=== PATIENT | male | born 1970 | race Caucasian/White ===

== ENCOUNTER 2017-05-20 15:30 | Outpatient (RCR) | payer BC, OTHER, SELFPAY ==
--- NOTE | 2017-04-29 12:11 | OTREVAL_ITS ---
Fabiano Rea, It has been my pleasure to treat LIAT MESSINA over the last 3 visits for right SM FDP laceration zone I. Please see the progress note below for an update on the occupational therapy plan of care! Subjective: pt returns to therapy following c9 approval- pt states he is doing well- states his fingers are sensitive and MF is demo difficlty with ROM Objective/Function: Right MF MCP 0/70. Right MF PIP -35/60. Right RF MCP 0/ 75. Right RF PIP 0/80. right LF MCP 0/70. right LF PIP -30/70. 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 left shale planer operator helper strength 145# Plan Frequency: 1x/Week Duration: 2 Months Plan: cont tx to gain ROM. decrase sensitivity. gain functional strength Anticipated Interventions Anticipated Interventions: Modified Carrera Protocol, Edema Control, Scar Care, Triggerpoint Release, Desensitization, Sensory Retraining, Wound Care, Modalities, Orthoses, Fine Motor Coord/Mamadou Please do not hesitate to contact me at [phone] by phone or Fax: if you have questions or concerns regarding this new plan of care! Sincerely, Dory Singer, OTR/L, CHT
--- NOTE | 2017-04-29 12:14 | HP.OTEVAL_ITS ---
Patient's Visit Information LIAT MESSINA is a 47 year old M, referred to Occupational Therapy by Fabiano Rea,, with a diagnosis of right SM FDP laceration zone I. Date of Evaluation: 03/05/17 Occupational Therapist: Dory Singer, OTR/L, CHT - Subjective Subjective: pt states suffered a zone I right small finger FDP laceration. 02-16 laceration sx at 02-27-17 pt is now s/p 6 days-. right hand crush injury loss of index finger but that was done at work and not related to the LF laceration. 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 right RF MCP 30 pip 40. right lf MCP not tested with active movement - Hand/Wrist Evaluation Total Score of Pain & Functional Sections: 67 - Goals Goal:100% adherence to protocol: Yes Goal:Daily scar massage when approriate: Yes Goal:ROM equal to unaffected hand: Yes Goal:Property Field Adjuster/Pinch strength at least 75% of unaffected hand: Yes Goal:No pain with affected hand use: Yes Goal:PIP Circumferences equal to unaffected hand: Yes Goal:Full use of affected hand in daily activities including: Yes Goal:Decrease scar hypersensitivity: Yes - Rehabilitation General Assessment: s/p FDP zone 1 repair. furhter complications from right hand crush inj. Rehabilitation Potential: Good - Anticipated Interventions Anticipated Interventions: Modified Carrera Protocol, Edema Control, Scar Care, Triggerpoint Release, Desensitization, Sensory Retraining, Wound Care, Modalities, Orthoses, Fine Motor Coord/Mamadou - Visit Plan Frequency: 1x/Week Duration: 2 Months General Plan: pt currently 6 days S/P following a right LF zone 1 FDP repair. will follow protocol for repair TEXT: Thank you for the opportunity to evaluate your patient. For Medicare and Medicare HMO plans, please review the plan of care and approve it. It will need to be FAXED BACK to us at [phone] for Medicare purposes. Please let me know if there are questions or concerns regarding this plan of care. Physician Signature: Date:
--- NOTE | 2017-05-20 16:09 | HP.OTREVAL ---
Fabiano Rea, It has been my pleasure to treat LIAT MESSINA over the last 10 visits for right SM FDP laceration zone I, and right IF amp at MPJ region. Please see the progress note below for an update on the occupational therapy plan of care! 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 Left intermodal owner operator truck driver 145#. right. MF MCP 0/75. MF PIP -35/75. MF DIP 0/25 Plan Frequency: pt C9 date end 05-23-17 Duration: no further apts scheduled Plan: pt would benefit from further strengthening Anticipated Interventions Anticipated Interventions: Modified Carrera Protocol, Edema Control, Scar Care, Triggerpoint Release, Desensitization, Sensory Retraining, Wound Care, Modalities, Orthoses, Fine Motor Coord/Mamadou Please do not hesitate to contact me at [phone] by phone or if you have questions or concerns regarding this new plan of care! Sincerely, Dory Singer, OTR/L, CHT
--- NOTE | 2017-07-21 13:13 | HP.OTDCSUM_ITS ---
HP - OT D/C Summary It has been my pleasure to treat LIAT MESSINA under orders from Fabiano Rea, for the diagnosis of right SM FDP laceration zone I for a total of 10 visit(s). Please see the following information for a summary of their discharge status. 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 Left military science teacher 145#. right. MF MCP 0/75. MF PIP -35/75. MF DIP 0/25 - Goals Patient Goals: Regain Mobility, Regain Strength, Decrease Swelling/Stiffness, Improve Fine Motor Skills, Use Hand/Wrist/Arm Normally Again, Be More Independent in ADLS Goal:100% adherence to protocol: Yes Goal:Daily scar massage when approriate: Yes Goal:ROM equal to unaffected hand: Yes Goal:Medical Device Sales Representative/Pinch strength at least 75% of unaffected hand: Yes Goal:No pain with affected hand use: Yes Goal:PIP Circumferences equal to unaffected hand: Yes Goal:Full use of affected hand in daily activities including: Yes Goal:Decrease scar hypersensitivity: Yes - Plan Plan: pt would benefit from further strengthening- but leaving for out of town work- pt d/c at this time. rec/d HEP to cont. to increase pts functional strength - D/C Information If there are questions or concerns regarding this patient's occupational therapy , please fell free to call me at [phone]. Thank you for the referral of this patient. Sincerely, Dory Singer, OTR/L, CHT
== END 2017-05-20 19:00 | disposition home or self-care (01) ==
LOC: OT 15:30
DX: S61.216A Laceration without foreign body of right little finger without damage to nail, initial encounter (principal)
CPT/HCPCS: 97018; 97035; 97110; 97140; 97166; 97530

== ENCOUNTER 2019-04-04 08:59 | Day surgery (SDC) | payer BC, SELFPAY ==
--- NOTE | 2019-03-07 05:14 | HP_ITS ---
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 Is patient in pain?: No Allergies No Known Allergies Allergy (Verified 03/07/19 15:41) Medications No Known/Unobtainable [No Known Home Medications] 01/09/17 [History Confirmed 03/07/19] [facility] Medical History (Updated 03/07/19 @ 17:11 by Yosef Finley MD) Inguinal hernia of left side without obstruction or gangrene (Acute) Surgical History (Updated 03/07/19 @ 15:39 by Isabelle Humphries) history right hand surgery (Acute) Family History (Updated 03/07/19 @ 15:40 by Isabelle Humphries) Grandfather Colon cancer Mother Cancer skin cancer Diabetes Social History (Updated 03/07/19 @ 17:14 by Yosef Finley MD) Smoking Status: Never smoker alcohol intake: never substance use type: does not use HPI HPI HPI: LIAT MESSINA, is a 49 M who presents to the office today for HPI HPI Surgical H&P: Yes HPI: LIAT MESSINA, is a 49 M who presents to the office today for surgical consultation regarding a suspected left inguinal hernia. The patient is referred by his primary care physician Dr. Charlie Hays and a written copy of my surgical consult and recommendations will be returned to him. For the past 2 to 3 weeks the patient has noted a bulging in the left groin area. He does have significant amount of lifting and straining at work. 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 The work environment is vigorous and rather dirty. He does not note an acute episode of discomfort. He has not had any abdominal surgery though he has previously had kidney stones treated via a uroscopic approach. He states that he otherwise enjoys good health. ROS General General: No weight change, appetite, fatigue, colon cancer, breast cancer or weakness HEENT HEENT: No difficulty swallowing, eye injury, eye surgery, swollen glands or hoarseness Endo Endocrine: No thyroid disease, diabetes mellitus, thyroid cancer, Hair loss, heat intolerance or cold intolerance Skin Skin: No rash or changing moles Breast Breast: No left breast lump, right breast lump, nipple discharge, breast pain, abnormal mammogram, abnormal US or breast enlargement Musc Musculoskeletal: No back problems, arthritis, rheumatoid arthritis, gout or joint pain Cardio Cardiovascular: No murmur, pacemaker, heart disease, atrial fibrillation, high blood pressure, heart attack, heart stent, palpitations, shortness of breat with exertion or chest pain Psych Psychiatric: No depression, anxiety or hearing voices Resp Respiratory: No shortness of breath, No sleep apnea, No cough, No COPD, No asthma, No emphysema, No wheezing Gastro Gastrointestinal: No abdominal pain, No nausea or vomiting, No diarrhea, No constipation, No blood in stool, No acid reflux, No hemorrhoids, No ulcers, No gallbladder problem, No black,tarry stools Aiden Hematologic: No blood thinners, No blood disorders, No bleeding, No anemia, No blood clots Neuro Neurologic: No system reviewed and no additional complaints, except as docu, No as per HPI, No abnormal walking, No abnormal hearing, No abnormal movements, No abnormal speech, No behavioral changes, No burning sensations, No confusion, No seizure-like activity, No unsteadiness, No dizziness, No localized weakness, No frequent falls, No headache(s), No lack of coordination, No loss of vision, No memory loss, No numbness, No other visual disturbances, No radiating pain, No restless legs, No sensory deficit, No fainting, No tingling, No tremor(s), No weakness, No other Exam Const General: cooperative, comfortable Nutritional Appearance: obese Orientation: alert, awake HENMN Head: normal to inspection Chest Breast Palpation: No nipple discharge Resp Effort & Inspection: normal respiratory effort Auscultation: clear to auscultation bilaterally Cardio Rate: regular rate Rhythm: regular rhythm Heart Sounds: no murmurs GI Palpation: soft Auscultation: normal bowel sounds Other: Small nonreducible umbilical hernia Other: Testicles are descended, somewhat difficult to feel secondary to the mild of fibrofatty tissue. Right groin is solid and intact. Obvious slightly tender but reducible left inguinal hernia noted. The patient is wearing a hernia truss Skin General: no rashes or lesions noted Neuro Cognition: normal cognition Extrem General: no calf tenderness bilaterally Psych Affect: normal affect Assessment & Plan Problems 1. Inguinal hernia of left side without obstruction or gangrene K40.90 Plan 49-year-old gentleman. He has a very vigorous works style. The work environment is somewhat dirty. He has a small umbilical hernia and a symptomatic left inguinal hernia. I have proposed for him a laparoscopic left inguinal herniorrhaphy with mesh and either a suture or mesh umbilical herniorrhaphy. In detail we discussed the technique, benefit, risks, alternatives. No guarantees of success have been offered. He has had an opportunity to ask and have questions answered. He would like to schedule in March. We will proceed at his discretion. He is aware that because of the vigorous nature of his work that we will need to have a postoperative recovery period. He has had an opportunity to ask and have questions answered. I very much appreciate the kind opportunity of assisting with the surgical care. We will schedule and proceed at his discretion. CC: Dr. Charlie Finley M.D., F.A.C.S. Coding Level of Care Code 85873 Diagnoses Inguinal hernia of left side without obstruction or gangrene K40.90 03/07/19 1714 <Electronically signed by Yosef valles MD> Date _ Yosef Finley MD I have re-examined the patient. There are no clinical changes since date of exam.
[2019-03-07 15:41] VITALS: BMI 32.5
[2019-04-04] VITALS (10 sets, daily range): BP systolic 105–129; BP diastolic 63–92; PULSE 50–63; RESP 15–16; TEMP 36.1–36.6; O2SAT 92–97; BMI 33.4
--- NOTE | 2019-04-04 | HERN_PTH ---
PATIENT: LIAT MESSINA LOC: [facility] [place] U#:[id number] AGE/SX: 49/M ROOM: RE04/04/[address]: Dr. Yosef Finley MD : 1970 BED: DIS: 04/04/2019 SPEC #: [id number] RECD: 04/04/19 14:24 STATUS: LUIS A BINA #: [id number] IFRAH: 04/04/19 00:[address]: Yosef Finley DEPT: SURGICAL PATHOLOGY RECD BY: Mynor Chin ENTERED: 04/04/19 14:24 SP TYPE: Hernia OTHR DR: Dr. Charlie Hays MD Tissues: HERNIA Procedures: Surgery Specimen Level II HEADER OPERATION: Laparoscopic inguinal hernia repair, umbilical repair with mesh PRE-OP DIAGNOSIS: Left inguinal hernia TISSUE SUBMITTED: Hernia sac MICROSCOPIC DIAGNOSIS Soft tissue of left inguinal region, excision: Fragments of fibrofatty tissue consistent with hernia sac. AM:morgan 04/05/19 MICROSCOPIC DESCRIPTION Slides are reviewed. GROSS DESCRIPTION Received in fixative is one container labeled with the patient's name and designated hernia sac. The specimen consists of three irregular fragments of pink-yellow fibrofatty tissue that in aggregate measure 4 x 2.8 x 1 cm. Serial sections do not reveal mass lesions or areas of hemorrhage. Filenet Architect sections are submitted in one cassette. / AM:morgan 04/04/19 TC:5 CPT: 59533
--- NOTE | 2019-04-04 09:16 | EKG12_ITS ---
Test Reason : PRE-OP Blood Pressure : / mmHG Vent. Rate : 051 BPM Atrial Rate : 051 BPM P-R Int : 172 ms QRS Dur : 094 ms QT Int : 434 ms P-R-T Axes : 041 025 013 degrees QTc Int : 400 ms Sinus bradycardia Otherwise normal ECG No previous ECGs available Confirmed by MIRIAN TREVINO, FER ([id number]), editor index EDUIN GRAHAM ([id number]) on 04/05/2019 10:42:39 AM Referred By: Yosef Finley Confirmed By:FER VELA MD
[2019-04-04] MEDS: Lactated Ringers 1,000 ML 100 ML IV (09:39)
[2019-04-04] MEDS: Cefazolin 2 GM in 0.9% Normal Saline 100 ML IV (11:11)
--- NOTE | 2019-04-04 11:23 | PCM.DC.GS ---
Discharge Diet: Light diet - advance as tolerated - if you have questions about your diet instructions, please talk to you doctor. Discharge Activity: May Not Drive - for 5-7days or while taking narcotic pain medicine. May shower in (days): 1 Lifting Restrictions: 10 pounds Call your doctor if your incision/area has: Continuous Slow Oozing, Sudden Increased Bleeding, Increased Pain/ Swelling, Increased Redness, Foul Smelling Discharge Call your doctor if you observe: Fever of 101 or Higher Suture Line Care: Avoid Pulling/Pushing, Avoid Pinching/Bending Additional Dressing/Incision Instructions:: Change or remove dressing in 4 days. Leave steri-strips in place for 1 week. Allergies/Adverse Reactions: Allergies No Known Allergies Allergy (Verified 04/04/19 09:19) Medications to take at Discharge Hydrocodone Bitart/Apap 5-325 [[place] 5MG-325MG] 1 tablet PO Q4H PRN PRN 2 Days #8 tablet 04/04/19 The following prescriptions were given: Hydrocodone Bitart/Apap 5-325 [[place] 5MG-325MG] 1 tablet PO Q4H PRN PRN 2 Days #8 tablet PRN Reason: Pain Transmission Status: Sent to [facility] Primary Care Physician: Charlie Hays MD [Primary Care Provider] - Test Results: Test results from this visit will be discussed in further detail at your follow-up appointment, if applicable. Please Follow Up With: Yosef Finley MD - [phone] When: Call to make an appointment to be seen in about 10 days.
[2019-04-04] MEDS: Bupivacaine Mpf 0.5% 30 ML VIAL (12:43)
--- NOTE | 2019-04-04 12:47 | OP.PCM_ITS ---
Problem List (1) Inguinal hernia of left side without obstruction or gangrene Status: Acute (2) Umbilical hernia without obstruction and without gangrene Status: Acute Report of Operation Date of Procedure: 04/04/19 Pre-Operative Diagnosis: Large indirect left inguinal hernia. Umbilical hernia Post-Operative Diagnosis: Same Surgery/Procedure Performed:: Laparoscopic left inguinal herniorrhaphy with large 3D max Bard mesh. Umbilical herniorrhaphy with 6.[address] hernia patch. 3D max: Lot number [id number]. Reference #[id number]. Expiry date 12/19/2023. Vent[address]ex ST patch. Lot number [id number]. Reference #[id number]. Expiry date 10/17/2020 Description of Surgical Findings:: Timeout informed consent was obtained. 49-year-old gent was taken the operating placement table underwent general endotracheal intubation anesthesia. Ancef 2 g given intravenously. The abdomen left groin sterilely prepped draped. 0.5% Marcaine was used as local anesthetic. Skin sites were pre-anesthetized. A total of 30 cc was used. A supraumbilical curvilinear incision was created sharp dissection carried down through subcu tissue the umbilical hernia umbilical hernia sac identified. This was circumferentially dissected free. Electrocautery was used to amputated. Specimen was sent for analysis. Holding sutures of 0 Vicryl placed. Varies needle inserted single drop test performed the abdomen insufflated CO2 to pressure of 10 minutes mercury pressure. Mary trocar inserted. The abdomen is inspected no evidence of any trocar injuries. A very small indirect defect was noted on the right. This was very small and discussion was not had with the patient so I noted it and then proceeded. There was quite a large left inguinal hernia. 5-minute trochars in place in the right and left lower quadrants. The peritoneum superior lateral to the internal ring was incised carried medially the hernia sac which was quite sizable was carefull y meticulously dissected free. Were needed hemostasis was attained with hemo- lock clips. The peritoneum was completely dissected free so as the complete visualization of the direct indirect and femoral area. A Bard 3 DMax large mesh was placed was to cover the defect area it was secured in place laterally superiorly and medially with secure strap. Excellent coverage of the defect area was achieved. Peritoneum was approximated to itself using secure strap and hemo-lock clips. Complete obliteration to the mesh was achieved. The abdomen was allowed to deflate the CO2. A 6.4 cm ventral X mesh was placed at the umbilicus and secured in place with 0 Nurolon. Fascia was then closed transversely with the same. Inspection was performed and 2 additional secure strap clips were used to assure that the mesh was completely flat against the anterior peritoneum. The greater omentum was secured so that it would be overlying the small bowel beneath. The abdomen was allowed to deflate of the CO2. Skin edges approximated opted for Monocryl subdermal stitches. Steri-Strips and Telfa and OpSite dressings were applied. Sponge and instrument and needle counts reported surgical correct. Blood loss minimal. Specimen included the umbilical hernia sac contents. Drains none. Blood loss minimal. The patient was taken to recovery in satisfactory edition without apparent complication Yosef Finley M.D., F.A.C.S. Type of Anesthesia:: General Anesthesiologist: Eliezer Garcia
== END 2019-04-04 15:52 | disposition home or self-care (01) ==
LOC: SDC 09:00 → AC 09:03
PROVIDERS: Referring Provider Surgery; Visit Provider Surgery
PROC: (CPT 49650; principal; 2019-04-04 10:55)
DX: K40.90 Unilateral inguinal hernia, without obstruction or gangrene, not specified as recurrent (principal); K42.9 Umbilical hernia without obstruction or gangrene; R00.1 Bradycardia, unspecified
CPT/HCPCS: 49650; 49652; 88302; 93005; C1781; J7120; J2405

== ENCOUNTER → 2020-06-05 13:57 | Outpatient (CLI) | payer BC, SELFPAY ==
[2019-04-04 09:25] VITALS: BMI 33.4
[2020-06-05 14:53] LABS: Hematocrit 44.7 % (40-54); Hemoglobin 14.5 g/dL (13.0-16.5); Mean Corp Hgb Conc 32.4 g/dL (32-36); Mean Corpuscular Hgb 30.3 pg (27.0-32.0); Mean Corpuscular Volume 93.3 fL (80-94); Mean Platelet Vol. 8.9 fl (6.2-12.0); Platelet Count 250 K/mm3 (150-450); RBC Distribution Width CV 12.3 % (11.6-14.6); RBC Distribution Width SD 42.3 fl (35.1-43.9); Red Blood Count 4.79 M/mm3 (4.6-6.2); White Blood Count 6.3 K/mm3 (4.4-11.0)
[2020-06-05 15:51] LABS: Anion Gap 6 (5-15); BUN 17 mg/dL (7-18); BUN/Creat Ratio 9.7 RATIO (10-20); Calcium,Total 8.4 mg/dL (8.5-10.1); Chloride 108 mmol/L (98-107); Creatinine, Serum 1.75 mg/dL (0.70-1.30); EST Glomerular Filtration Rate 44 mL/min (>60); Est Glom Filt Rate - Afr Amer 54 mL/min (>60); Glucose 80 mg/dL (74-106); Potassium 4.1 mmol/L (3.5-5.1); Sodium Level 139 mmol/L (136-145)
== END ==
PROVIDERS: PCP Family Medicine; Referring Provider Urology; Visit Provider Urology
DX: Z03.818 Encounter for observation for suspected exposure to other biological agents ruled out (principal)
CPT/HCPCS: 36415; 80048; 85027; 87635; C9803; U0002

== ENCOUNTER → 2020-06-14 15:04 | Outpatient (CLI) | payer BC, SELFPAY ==
[2019-04-04 09:25] VITALS: BMI 33.4
--- NOTE | 2020-06-14 15:13 | RAD_ITS ---
INDICATION: CALCULUS OF URETER EXAMINATION/TECHNIQUE: X-RAY - XR Abdomen 1 View COMPARISON: 02/10/2017 FINDINGS: BOWEL GAS PATTERN: Non-obstructive. No bowel or stomach distention. FREE AIR: Not assessed on a single supine view. ORGANOMEGALY: Not seen. CALCIFICATIONS: Punctate left lower pole renal calculus. No ureteral calculus is seen. LOWER CHEST: No acute pathology. BONES AND SOFT TISSUES: No acute pathology. OTHER: Left-sided nephroureteral stent present. RAD/Abdomen Single View IMPRESSION: No ureteral calculus is seen. Punctate left lower pole renal calculus. Electronically Signed: Adalberto Macias MD at 17:33 EDT Tel , Service support ,
== END ==
PROVIDERS: PCP Family Medicine; Referring Provider Urology; Visit Provider Urology
DX: N20.1 Calculus of ureter (principal)
CPT/HCPCS: 74018

== ENCOUNTER → 2021-02-21 11:32 | Outpatient (CLI) | payer BC, SELFPAY ==
[2021-02-21 15:45] LABS: Hemoglobin A1c 5.2 % (3.8-5.6)
== END ==
PROVIDERS: PCP Family Medicine; Referring Provider Physician Assistant; Visit Provider Physician Assistant
DX: L83 Acanthosis nigricans (principal); L82.1 Other seborrheic keratosis; L81.4 Other melanin hyperpigmentation; D22.5 Melanocytic nevi of trunk; L57.8 Other skin changes due to chronic exposure to nonionizing radiation; L57.0 Actinic keratosis; L90.5 Scar conditions and fibrosis of skin; L70.0 Acne vulgaris; L82.0 Inflamed seborrheic keratosis; L02.222 Furuncle of back [any part, except buttock and flank]; L91.8 Other hypertrophic disorders of the skin; I78.8 Other diseases of capillaries; Z71.89 Other specified counseling
CPT/HCPCS: 36415; 83036

== ENCOUNTER → 2021-07-29 | Outpatient (CLI) | payer BC, SELFPAY ==
[2021-07-29 17:35] LABS: PSA,Total - Annual Screen 1.07 ng/mL (0.00-4.00)
== END | disposition home or self-care (01) ==
LOC: LABSPEC 16:04 → LAB 07-30 06:24
PROVIDERS: PCP Family Medicine; Visit Provider Urology
DX: Z12.5 Encounter for screening for malignant neoplasm of prostate (principal)
CPT/HCPCS: 36415; 84153; G0103

== ENCOUNTER → 2023-06-16 | Outpatient (CLI) | payer OTHER, SELFPAY ==
[2023-06-16 17:04] LABS: ALB/GLOB Ratio 1.2 RATIO (0.9-2.4); AST(SGOT) 18 U/L (15-37); Alanine Aminotransfer ALT/SGPT 35 U/L (16-61); Alkaline Phosphatase 65 U/L (45-117); Anion Gap 8 (5-15); BUN 16 mg/dL (7-18); BUN/Creat Ratio 14.5 RATIO (10-20); Calcium,Total 9.2 mg/dL (8.5-10.1); Chloride 108 mmol/L (98-107); Cholesterol 217 mg/dL (200); EST Glomerular Filtration Rate 75 mL/min (>60); Est Glom Filt Rate - Afr Amer 90 mL/min (>60); Globulin 3.2 g/dL (2.2-4.2); Glucose 83 mg/dL (74-106); High Density Lipoprotein 28 mg/dL; Potassium 4.5 mmol/L (3.5-5.1); Protein, Total 7.2 g/dL (6.4-8.2); Sodium Level 141 mmol/L (136-145); Triglycerides 361 mg/dL; Very Low Density Lipoprotein 72 mg/dL (5-40)
== END | disposition home or self-care (01) ==
LOC: BIMLAB 15:53
PROVIDERS: PCP Family Medicine; Visit Provider Family Medicine
DX: E78.5 Hyperlipidemia, unspecified (principal)
CPT/HCPCS: 36415; 80053; 80061

== ENCOUNTER → 2024-01-12 | Outpatient (CLI) | payer OTHER, SELFPAY ==
--- NOTE | 2024-01-12 16:37 | RAD_ITS ---
INDICATION: CALCULUS OF KIDNEY EXAMINATION/TECHNIQUE: X-RAY - 2 XR Abdomen 1 View COMPARISON: Prior study dated: 06/14/2020 FINDINGS: BOWEL GAS PATTERN: Non-obstructive. No bowel or stomach distention. FREE AIR: Not assessed on a single supine view. ORGANOMEGALY: Not seen. CALCIFICATIONS: No abnormal calcifications observed. LOWER CHEST: No acute pathology. BONES AND SOFT TISSUES: No acute pathology. RAD/Abdomen Single View IMPRESSION: Non-obstructive bowel gas pattern. Electronically Signed: Fuentes Raymundo MD at 13:38 EDT ,
[2024-01-12 17:34] LABS: PSA,Total - Annual Screen 1.15 ng/mL (0.00-4.00)
== END | disposition home or self-care (01) ==
LOC: LAB 15:58
PROVIDERS: PCP Family Medicine; Referring Provider Urology; Visit Provider Urology
DX: Z12.5 Encounter for screening for malignant neoplasm of prostate (principal); N20.0 Calculus of kidney
CPT/HCPCS: 36415; 74018; 84153; G0103

== ENCOUNTER → 2024-07-14 | Outpatient (CLI) | payer OTHER, SELFPAY ==
--- NOTE | 2024-07-14 15:26 | RAD_ITS ---
PROCEDURE: SHOULDER MIN 2 VIEWS 07/14/2024 REASON FOR EXAM: SHOULDER PAIN TECHNIQUE: Four views of the left shoulder COMPARISON: None FINDINGS: See impression RAD/Shoulder min 2 Views IMPRESSION: Negative for acute fracture or malalignment. No significant arthropathy. [facility]
== END | disposition home or self-care (01) ==
PROVIDERS: PCP Family Medicine; Referring Provider Family Medicine; Visit Provider Family Medicine
DX: M75.100 Unspecified rotator cuff tear or rupture of unspecified shoulder, not specified as traumatic (principal)
CPT/HCPCS: 73030

== ENCOUNTER → 2024-10-13 | Outpatient (CLI) | payer OTHER, SELFPAY ==
--- NOTE | 2024-10-13 08:50 | RAD_ITS ---
EXAM: XR Abdomen, 1 View CLINICAL INDICATION: CALCULUS OF KIDNEY TECHNIQUE: Frontal supine view of the abdomen/pelvis. COMPARISON: No relevant prior studies available. FINDINGS: GASTROINTESTINAL TRACT: Fecal retention in the colon consistent with constipation. No dilation. ORGANS: Right renal pelvic calculi, largest measuring up to 5 mm. BONES/JOINTS: Unremarkable. No acute fracture. RAD/Abdomen Single View IMPRESSION: 1. Right renal pelvic calculi, largest measuring up to 5 mm. 2. Fecal retention in the colon consistent with constipation. Reading Location: [id number]
--- OUTSIDE RECORDS SUMMARY | 2024-10-13 10:48 | XMS RPT_ITS | CCD ---
Author Organization [facility] Care Team Providers Care Cokeman Name Role Phone Álvaro, Fabiano Unavailable Unavailable PROVIDER, UNKNOWN Unavailable Unavailable Bill Hays Unavailable Unavailable GAYLE, CAROL Unavailable Unavailable ÁLVARO, FABIANO Unavailable Unavailable KOUTRODIMOS, LULU (OT) Unavailable Unav ailable ÁLVARO, FABIANO Unavailable Unavailable ÁLVARO, FABIANO H Unavailable Unavailable ÁLVARO, FABIANO H Unavailable Unavailable Bill Hays Unavailable Unavailable Bill Hays Unavailable Unavailable Bill Hays Unavailable Unavailable Bill Hays Unavailable Unavailable Bill Hays Unavailable Unavailable Bill Hays Unavailable Unavailable Bill Hays Unavailable Unavailable Bonnie Morales E Unavailable Unavailabl e Bonnie Morales E Unavailable Unavailabl e Bill Hays Unavailable Unavailable Alberto, Ofelia A Unavailable Unavailable Alberto, Ofelia A Unavailable Unavailable CINDY SERRATO Admitting Unavailable CINDY SERRATO Attending Unavailable CINDY SERRATO Primary Care Unavailable BILL HAYS Consulting Unavailable PROVIDER, UNKNOWN Consulting Unavailable PROVIDER, UNKNOWN Consulting Unavailable Bill Hays Primary Care Provider DO TENZIN PACK Attending Unavailable Dr. Bill Booker Primary Care UnavailDr. Bill Dickinson Referring UnavailDO TENZIN August Admitting Unavailable Unavailable Primary Care Provider UnavailDr. Bill Robb Primary Care Provider Dr. Bill Booker Referring Provider [phone] Dr. Cameron Garcia Attending Provider [phone] Dr. Cameron Garcia DO Primary Care Provider Dr. Cameron Garcia DO Attending Provider Dr. Cameron Garcia DO Referring Provider Cameron Garcia R Primary Care Unavailable Cameron Garcia R Referring Unavailable Cameron Garcia R Attending Unavailable Cameron Garcia R Primary Care Unavailable Deondre Clark Referring Unavailable EduardoDeondre tee Attending Unavailable Cameron Garcia R Referring Unavailable Cameron Garcia R Attending Unavailable Cameron Garcia R Primary Care Unavailable Medications Current Medications Medication Drug Class(es) Dates Sig (Normalized) Sig (Original) brompheniramine maleate 0.4 mg/ml / dextromethorphan hydrobromide 2 mg/ml / pseudoephedrine hydrochloride 6 mg/ml oral solution (1 source) alpha-Adrenergic Agonist, Uncompetitive V-ihymwt-I-aspartat e Receptor Antagonist, Sigma-1 Agonist Start: 06-03-2023 End: 06-03-2023 take 10 mL by mouth every six hours as needed Brompheniramine-P seudoeph-DM (BROMFED DM) 2-30-10 mg/5 mL syrup Take 10 mL by mouth four times a day as needed. 118 mL 0 06/03/2023 06/03/2023 Discontinued (Side Effects) Comment on above: Take 10 mL by mouth four times a day as needed. meloxicam 15 mg oral tablet (1 source) Nonsteroidal Anti-inflammatory Drug Start: 07-13-2024 take 1 tablet by mouth once daily Meloxicam 15 mg tablet Active 15 mg PO daily July 13, 2024 12:00am potassium citrate 15 meq extended release oral tablet (4 sources) Start: 06-16-2023 take 1 tablet by mouth twice daily Potassium Citrate 15 mEq tablet extended release Active 15 meq PO TWICE A DAY June 16, 2023 12:00am Start: 05-09-2023 Potassium Citr ate 15 mEq TbER sildenafil 20 mg oral tablet (3 sources) Phosphodiesterase 5 Inhibitor Start: 06-16-2023 End: 07-13-2024 Sildenafil (Pulm.Hypertension) 20 mg tablet Active 40 mg PO DAILY July 13, 2024 2:47pm Start: 06-16-2023 take 40 mg by mouth once daily Sildenafil (Pulm.Hypertension) Active 40 MG PO DAILY June 16, 2023 12:00am Completed/Discontinued Medications Medication Drug Class(es) Dates Sig (Normalized) Sig (Original) acetaminophen 325 mg / HYDROcodone bitartrate 5 mg oral tablet (2 sources) Opioid Agonist Start: 04-04-2019 End: 04-06-2019 Hydrocodone-Acetami nophen 1 TABLET tablet Discontinued 1 {tbl} PO EVERY 4 HOURS NEEDED as needed for Pain 8 2 April 04, 2019 April 05, 2019 1:00am April 06, 2019 1:08am Start: 04-04-2019 End: 04-06-2019 take 1 tablet by mouth every four hours as needed Hydrocodone-Acetaminophen Discontinued 1 TABLET PO EVERY 4 HOURS NEEDED 8 2 April 04, 2019 April 06, 2019 1:08am acetaminophen 325 mg / oxyCODONE hydrochloride 5 mg oral tablet (3 sources) Opioid Agonist Start: 01-09-2017 take 2 tablets by mouth every four hours as needed oxyCODONE-acetaminophen (PERCOCET) 5-325 mg tablet Take 2 tablets by mouth every 4 hours as needed. 30 tablet 0 01/09/2017 Active Comment on above: Take 2 tablets by mo ut every 4 hours as needed. benzonatate 100 mg oral capsule (2 sources) Non-narcotic Antitussive Start: 06-03-2023 take 1 capsule by mouth every eight hours as needed benzonatate (TESSALON PERLES) 100 mg capsule Take 1 capsule by mouth three times a day as needed. 12 capsule 0 06/03/2023 Active Comment on above: Take 1 capsule by mo ut three times a day as needed. cefadroxil 500 mg oral capsule (3 sources) Cephalosporin Antibacterial Start: 01-09-2017 take 1 capsule by mouth twice daily cefADROxil (DURICEF) 500 mg capsule Take 1 capsule by mouth twice daily. 10 capsule 1 01/09/2017 Active Comment on above: Take 1 capsule by mo uth twice daily. Problems Active Problems Problem Classification Problem Date Documented Da te Episodic/Chronic Abdominal hernia (6 sources) Umbilical hernia; Translations: [Umbilical hernia without obstruction or gangrene] 04-04-2019 Episodic Calculus of urinary tract (1 source) Personal history of urinary calculi; Translations: [Personal history of urinary calculi] Onset: 04-29-2022 Episodic Disorders of lipid metabolism (3 sources) Hyperlipidemia; Translations: [Hyperlipidemia, unspecified] 06-16-2023 Chronic Genitourinary symptoms and ill-defined conditions (1 source) Presence of urogenital implants; Translations: [Presence of urogenital implants] Onset: 04-29-2022 Chronic Other connective tissue disease (2 sources) Disorder of rotator cuff; Translations: [Unspecified rotator cuff tear or rupture of unspecified shoulder, not specified as traumatic] 07-13-2024 Episodic Other connective tissue disease (1 source) Unspecified rotator cuff tear or rupture of unspecified shoulder, not specified as traumatic; Translations: [Unspecified rotator cuff tear or rupture of unspecified shoulder, not specified as traumatic] Onset: 08-11-2024 Episodic Other male genital disorders (3 sources) Male erectile dysfunction, unspecified; Translations: [Erectile dysfunction] 06-16-2023 Chronic Other upper respiratory infections (2 sources) Sore throat symptom; Translations: [Acute pharyngitis, unspecified] 06-03-2023 Episodic Residual codes; unclassified (1 source) Family history of malignant neoplasm of digestive organs; Translations: [Family history of malignant neoplasm of digestive organs] Onset: 04-29-2022 Episodic Unclassified (1 source) Unknown / UNK(Unknown) Onset: 01-09-2017 Unclassified (1 source) Injury of right hand; Translations: [Hand injury, right, initial encounter] Onset: 01-09-2017 01-09-2017 Past or Other Problems Problem Classification Problem Date Documented Da te Episodic/Chronic Open wounds of extremities (2 sources) Laceration of flexor muscle, fascia and tendon of right little finger at wrist and hand level, initial encounter; Translations: [Lacerat flxr musc/fasc/tend r lit fngr at wrs/hnd lv, init] Onset: 02-27-2017 Episodic Other bone disease and musculoskeletal deformities (2 sources) Acquired absence of right finger(s); Translations: [Acquired absence of right finger(s)] Onset: 02-27-2017 Episodic Other injuries and conditions due to external causes (1 source) Unspecified injury of right wrist, hand and finger(s), initial encounter; Translations: [Unspecified injury of right wrist, hand and finger(s), initial encounter] Onset: 01-09-2017 Episodic Other injuries and conditions due to external causes (2 sources) Injury of right hand; Translations: [Unspecified injury of right wrist, hand and finger(s), initial encounter] Onset: 01-09-2017 01-09-2017 Episodic Other screening for suspected conditions (not mental disorders or infectious disease) (5 sources) Encounter for screening for malignant neoplasm of colon; Translations: [Encounter for screening for malignant neoplasm of prostate] Onset: 04-29-2022 Episodic Unclassified (1 source) Crushing injury of right hand, initial encounter Onset: 01-09-2017 Unclassified (2 sources) history right hand surgery 10-20-2021 Results Test Name Value Interpretation Reference Range Facility Shoulder min 2 Viewson 07-14 Shoulder min 2 Views [facility] [address] [place], [place] [id number] Shoulder min 2 Views MR#: [id number] Acct: [id number] Name: BERNARD GUNDERSON Rep #: [id number] : 1970 M 54 From: Yosef Reilly PCP: Dr. Cameron Garcia DO Status: REG CLI Study: Shoulder min 2 Views Date of Exam: 07/14/24 Exam# [id number] Ordering Dr: Cameron Garcia DO PROCEDURE: SHOULDER MIN 2 VIEWS 07/14/2024 REASON FOR EXAM: SHOULDER PAIN TECHNIQUE: Four views of the left shoulder COMPARISON: None FINDINGS: See impression RAD/Shoulder min 2 Views IMPRESSION: Negative for acute fracture or malalignment. No significant arthropathy. Reading Location: [facility] CC: Dr. Cameron Garcia DO Chief Mechanical Engineer: Signed Normal [facility] Internal Medicine Office Vis iton 07-13-2024 Internal Medicine Office Visit [facility] [address] [place] [address] [place] [address] OFFICE VISIT Date of Service: 07/13/24 MR#: [id number] Acct: [id number] Name: BERNARD GUNDERSON Rep #: [id number] : 1970 Provider: Dr. Cameron estevez DO Age/Sex: 54/M Location: [facility] [place] [place] Status: Signed Intake Vital Signs 06/16/23 15:25 07/13/24 14:38 Height 6 ft 6 ft Weight: 260 lb 6 oz BMI 35.3 BP 118/70 Blood Pressure Location Rt brachial Position Sitting Respiration 16 Pulse 59 L Pulse Source Monitor Temp 96.1 F L Temp Source Temporal Pulse Oximetry (%) 94 Oxygen Delivery Method room air Intake Visit Reasons: L shoulder Chief Complaint: shoulder pain Glazier Stained Glass Required: No Accompanied by: Self Is patient in pain?: Yes (left shoulder pain ) Pain scale (1-10): 9 Allergies No Known Allergies Allergy (Verified 07/13/24 14:35) Medications ???Medication ???Instructions ???Recorded ???Confirmed ???Type potassium citrate 15 mEq (1,620 15 meq PO BID 06/16/23 07/13/24 Hi story mg) tablet,extended release meloxicam 15 mg tablet 15 mg PO QDAY #30 tabs 07/13/24 Rx sildenafil (pulm.hypertension) 20 40 mg (2 x 20 mg) PO DAILY #20 ta bs 07/13/24 07/13/24 Rx mg tablet Have you fallen in the past year?: No PFSH Medical History Hyperlipemia Inguinal hernia of left side without obstruction or gangrene Surgical History History of umbilical hernia repair ( 03/2019) History of left inguinal hernia repair ( 03/2019) history right hand surgery Family History Grandfather Colon cancer Mother Cancer skin cancer Diabetes Social History adopted: No household members: none current occupational status: employed current occupation: [employer] pets and animals: No Smoking Status: Never smoker alcohol intake: never substance use type: does not use caffeine: No frequency: 1-2 times per week do you feel safe at home: Yes HPI HPI Chief Complaint: shoulder pain Details: BERNARD GUNDERSON, is a 54 M who presents to the office today for left shoulder pain. He says that he has had left shoulder pain on and off for several years but this time the pain is persistent and seems to be getting worse. He does not remember any 1 specific acute injury. He is has full range of motion but when he abducts the shoulder it is painful. ROS Const Constitutional: No body ache, excessive sweating, fatigue, fever(s), frequent falls, headache(s), snoring, weakness, weight change, sleep problems or change in appetite Eyes Eyes: No blurry vision, change in vision, eye pain or Light sensitivity ENT ENT: No abnormal hearing, ear or mastoid pain, tinnitus, nasal congestion, headache(s), neck pain or sore throat Resp Respiratory: No cough, shortness of breath, snoring or wheezing Cardio Cardiology: No chest pain at rest, chest pain with exertion, excessive sweating, shortness of breath, dyspnea on exertion, lightheadedness, orthopnea or palpitations Gastro GI: No abdominal pain, change in bowel habits, constipation, cramping, diarrhea, nausea/dyspepsia or vomiting Genitourinary Male: No burning urination, painful urination, urinary incontinence, urinary frequency or blood in urine Musc Musculoskeletal: No abnormal gait, joint pain, back pain, limited range of motion, neck pain, numbness, stiffness, tingling or Arthritis Skin Skin: No dry skin, redness, lesions, itchy eyes, rash or wounds Neuro Neurology: No abnormal gait, abnormal hearing, abnormal speech, dizziness, weakness, frequent falls, headache(s), memory loss, numbness or tingling Psych Psychiatric: No anxiety, No change in appetite, No depression, No memory loss and No Thoughts of harming yourself/Others Endo Endocrine: No cold intolerance, excessive sweating, fatigue, flushing, heat intolerance, increased thirst/drinking, increased hunger or weight change Aller/Imm Allergy/Immunologic: No itchy eyes, seasonal allergy symptoms, hives or wheezing Aiden/Lymp Hematologic/Lymphatic: No easy bleeding, easy bruising or enlarged lymph nodes Exam Const General: cooperative and healthy appearing Nutritional Appearance: average body habitus [facility] Head: normal to inspection Eyes General: appearance normal, both eyes and all related structures Neck Neck: normal visual inspection Thyroid: thyroid normal Resp Effort Inspection: normal respiratory effort Musc Musculoskeletal: Yes joint tenderness Skin Other: Patient has some pain with active and passive motion of the shoulder. Abduction is the most uncomfortable but only as he approaches 90 degrees. (more content not included)... Normal [facility] Abdomen Single Viewon 2023 Abdomen Single View [facility] Imaging [facility] [address] [place] [address] Abdomen Single View MR#: [id number] Acct: [id number] Name: BERNARD GUNDERSON Rep #: [id number] : 1970 M 54 From: Fuentes Hernandez PCP: Dr. Cameron Garcia DO Status: REG CLI Study: Abdomen Single View Date of Exam: 01/12/24 Exam# [id number] Ordering Dr: Deondre Clark MD :[id number] INDICATION: CALCULUS OF KIDNEY EXAMINATION/TECHNIQUE: X-RAY - 2 XR Abdomen 1 View COMPARISON: Prior study dated: 06/14/2020 FINDINGS: BOWEL GAS PATTERN: Non-obstructive. No bowel or stomach distention. FREE AIR: Not assessed on a single supine view. ORGANOMEGALY: Not seen. CALCIFICATIONS: No abnormal calcifications observed. LOWER CHEST: No acute pathology. BONES AND SOFT TISSUES: No acute pathology. RAD/Abdomen Single View IMPRESSION: Non-obstructive bowel gas pattern. Electronically Signed: Fuentes Raymundo MD at 13:38 EDT , CC: Dr. Cameron Garcia DO; Dr. Deondre Clark MD Chief Mechanical Engineer: Signed Normal [facility] PSA,Total - Annual Screenon 01-12-2024 PSA,TOT SCREEN 1.15 ng/mL Normal 0.00-4.00 [facility] Comment on above: Result Comment: This test was performed using the TPSA assay method for the [employer] chemistry system. Values obtained with different assay methods cannot be used interchangably. When changing PSA assays in the course of monitoring a patient, additional sequential testing should be carried out to confirm baseline values. Performed By: #### L [phone] #### [facility] [address] [place], [address] Basophil percentageOrdered B y: Cameron Garcia on 06-16-2023 Bilirubin [Mass/Vol] 0.70 mg/dL 0.20-1.00 [facility] Comment on above: For patients on eltr ombopag therapy, use of Dimension Barre TBIL is not recommended. Chloride [Moles/Vol] 108 mmol/L 98-107 [facility] Cholesterol [Mass/Vol] 217 mg/dL <200 [facility] Comment on above: <200 mg/dL Desirable 200-240 mg/dL Borderline >240 mg/dL High Risk Glucose [Mass/Vol] 83 mg/dL 74-[address] [facility] Potassium [Moles/Vol] 4.5 mmol/L 3.5-5.1 [facility] Comment on above: Slight Hemolysis, Re sult may be falsely increased. Protein [Mass/Vol] 7.2 g/dL 6.4-8.[address] [facility] Sodium [Moles/Vol] 141 mmol/L 136-[address] [facility] Triglyceride [Mass/Vol] 361 mg/dL <199 [facility] Comment on above: The drugs N-Acetylcy steine and Metamizole may falsely depress this assay.Serum Triglycerides Reference Interval Normal <150 mg/dL Borderline high 150 - 199 mg/dL High 200 - 499 mg/dL Very High > or = 500 mg/dL Laboratory - Chemistry and C hemistry - challengeOrdered By: Cameron Garcia on 06-16-2023 Albumin/Globulin [Mass ratio] 1.2 {ratio} 0.9-2.4 [facility] ALP [Catalytic activity/Vol] 65 U/L 45-117 [facility] ALT [Catalytic activity/Vol] 35 U/L 16-61 [facility] Cholesterol in HDL [Mass/Vol] 28 mg/dL >40 [facility] Comment on above: The drugs N-Acetylcy steine and Metamizole may falsely depress this assay. Reference Range HDL <40 mg/dL Low HDL Cholesterol HDL >or= 60 mg/dL High HDL Cholesterol Cholesterol in LDL [Mass/Vol] 117 mg/dL 0-130 [facility] CO2 [Moles/Vol] 25.0 mmol/L 21.0-32.0 [facility] Globulin (S) [Mass/Vol] 3.2 g/dL 2.2-4.2 [facility] Urea nitrogen/Creatinine [Mass ratio] 14.5 mg/mg 10-20 [facility] No Panel InformationOrdered By: Cameron Garcia on 06-16-2023 Estimated GFR (MDRD) Amer 90 mL/min >60 [facility] Comment on above: GFR Calc Estimated GFR (MDRD) Non-Af Amer 75 mL/min >60 [facility] Comment on above: Non- GFR Calc VLDL Cholesterol 72 mg/dL 5-40 [facility] Serum or plasma calcium erin urement (mass/volume)Ordered By: Cameron Garcia on 06-16-2023 Calcium [Mass/Vol] 9.2 mg/dL 8.5-10.[address] [facility] Serum or plasma creatinine m easurement (mass/volume)Ordered By: Cameron Garcia on 06-16-2023 Creatinine [Mass/Vol] 1.10 mg/dL 0.70-1.30 [facility] Comment on above: The validity of the calculated GFR & GFRAA in patients over 70 years has not been determined. Clinical correlation is essential. Serum or plasma urea nitroge n measurement (mass/volume)Ordered By: Cameron Garcia on 06-16-2023 Urea nitrogen [Mass/Vol] 16 mg/dL 7-18 [facility] Thin prep Papanicolaou smear with manual screeningOrdered By: Cameron Garcia on 06-16-2023 Thin prep Papanicolaou smear with manual screening 4.0 g/dL 3.2-5.0 [facility] Thin prep Papanicolaou smear with manual screening 18 U/L 15-37 [facility] Comment on above: Slight Hemolysis, Re sult may be falsely increased. Thin prep Papanicolaou smear with manual screening 8 5-15 [facility] CNOVon 06-03-2023 CNOV Office Visit ([facility]WSTR ) BERNARD GUNDERSON ([id number]) 1970 M Date Time Provider Department 06/03/23 7:45 AM [facility] During your visit today, we recorded the following information about you: Temperature Pulse Respiration Blood pressure 97.1 degrees 72/minute 20/minute 148/78 Weight 115.3 kg Chadwick Bryan PA 06/03/2023 7:59 AM Signed This note was created using Thounds. Subjective Bernard Gunderson is a 53 year old male. HPI 53-year-old male presents for sore throat, cough, headache, congestion, chills and sweating for 4 days. Patient states about 4 days ago he started getting nasal congestion, cough and sore throat. He has had a headache. He has felt feverish and been sweating with chills. He has not actually taken his temperature. He states he is around sick contacts, but has not been exposed to anything specific that he is aware of. He has been taking DayQuil, NyQuil and Motrin at home. No vomiting or diarrhea. Still able to eat and drink. No chest pain or shortness of breath. No history of COPD or asthma. PAST MEDICAL HISTORY Diagnosis Date Kidney stone NEGATIVE MEDICAL HISTORY PAST SURGICAL HISTORY Procedure Laterality Date LITHOTRIPSY XTRCORP SHOCK WAVE Right Lithotripsy ALLERGIES Patient has no known allergies. MEDICATIONS Potassium Citrate 15 mEq TbER cefADROxil (DURICEF) 500 mg capsule Take 1 capsule by mouth twice daily. (Patient not taking: Reported on 06/03/2023) oxyCODONE-acetaminophen (PERCOCET) 5-325 mg tablet Take 2 tablets by mouth every 4 hours as needed. (Patient not taking: Reported on 06/03/2023) FAMILY HISTORY Problem Relation Age of Onset Diabetes Mother Stroke Father Social History Tobacco Use Smoking status: Never Substance Use Topics Alcohol use: No Drug use: No Review of Systems Constitutional: Positive for chills and diaphoresis. Negative for fever. HENT: Positive for congestion and sore throat. Respiratory: Positive for cough. Negative for shortness of breath. Gastrointestinal: Negative for abdominal pain, diarrhea and vomiting. Neurological: Positive for headaches. Objective BP 148/78 Pulse 72 Temp 36.2 ?C (97.1 ?F) Resp 20 Wt 115.3 kg (254 lb 3.1 oz) SpO2 98% BMI 34.47 kg/m? Physical Exam Vitals and nursing note reviewed. Constitutional: General: He is not in acute distress. Appearance: Normal appearance. He is not toxic-appearing. HENT: Right Ear: Tympanic membrane and ear canal normal. Left Ear: Tympanic membrane and ear canal normal. Nose: Nose normal. Mouth/Throat: Mouth: Mucous membranes are moist. Pharynx: Uvula midline. Posterior oropharyngeal erythema present. Tonsils: No tonsillar exudate or tonsillar abscesses. 1+ on the right. 1+ on the left. Eyes: Conjunctiva/sclera: Conjunctivae normal. Cardiovascular: Rate and Rhythm: Normal rate and regular rhythm. Pulmonary: Effort: Pulmonary effort is normal. Breath sounds: Normal breath sounds. No wheezing, rhonchi or rales. Skin: General: Skin is warm and dry. Neurological: Mental Status: He is alert. Assessment and Plan ASSESSMENT/PLAN: 1. Sore throat - ICD9: 462, ICD10: J02.9 (primary diagnosis) - suspect viral - Group A strep molecular testing negative - Discussed supportive care treatment with fluids, rest and analgesia. - The patient may also use warm salt water gargles, throat lozenges and/or OTC throat spray as needed. 2. URI, acute - ICD9: 465.9, ICD10: J06.9 - Discussed viral etiology and rationale for treatment. - Symptomatic treatment with prn analgesia - Supportive care with fluids and rest - COVID AND INFLUENZA A/B AND RSV NAAT, ROUTINE -Out of window for Tamiflu and antiviral. -Rx for Tessalon Perles for cough Diagnosis and treatment plan were discussed and questions were answered to the patient's satisfaction. Pt acknowledged understanding of concepts and follow up plan. Specific signs and symptoms that would indicate the need for higher level of care were discussed in detail warranting prompt ER evaluation. CANDE Wright Allergies As of Date: 06/03/2023 (No Known Allergies) Date Reviewed: 06/03/2023 Reviewed by: Daksha Guajardo MA - Fully Assessed Reason for Visit: Sore Throat [200] Cmt: Cough, FARRIS, congestion x 4 days Primary Visit Diagnosis:Sore throat [J02.9] Other Visit Diagnosis:URI, acute [J06.9] Order(s):benzonatate (TESSALON PERLES) 100 mg capsuleTake 1 capsule by mouth three times a day as needed.Disp: 12 capsuleRfl: 0 STREP A MOLECULAR (POC) [[id number]] Order #: [id number] #:[id number] COVID AND INFLUENZA A/B AND RSV NAAT, ROUTINE [SQCVFLRS] Order #: [id number]. #:[id number] Prescriptions as of 06/03/2023 - Potassium Citrate 15 mEq TbER - benzonatate (TESSALON PERLES) 100 mg capsule Take 1 capsule by mouth three times a day as (more content not included)... Normal [facility] Srinivas [facility] BERN[facility] GUND[facility] ([id number]) 1970 M Date Time Provider Department 06/03/23 [facility] During your visit today, we recorded the following information about you: Chadwick Bryan, PA 06/03/2023 6:50 PM Signed Please call patient let him know he tested positive for influenza A. He is out of the window for treatment with Tamiflu. Continue supportive treatment at home. Martine Montiel LPN 06/03/2023 8:04 PM Signed Patient notified.Martine Montiel LPN Allergies As of Date: 06/03/2023 (No Known Allergies) Date Reviewed: 06/03/2023 Reviewed by: Daksha Guajardo MA - Fully Assessed Reason for Visit: Results [95] Prescriptions as of 06/03/2023 - Potassium Citrate 15 mEq TbER - benzonatate (TESSALON PERLES) 100 mg capsule Take 1 capsule by mouth three times a day as needed. - cefADROxil (DURICEF) 500 mg capsule Take 1 capsule by mouth twice daily. - oxyCODONE-acetaminophen (PERCOCET) 5-325 mg tablet Take 2 tablets by mouth every 4 hours as needed. Problem List As Of Date 06/03/2023 Noted Resolved Hand injury, right, initial encounter [S69.91XA]01/09/2017 Encounter Status:Closed by MARTINE MONTIEL on 06/03/23 Normal [facility] COVID AND INFLUENZA A/B AND RSV NAAT, ROUTINEon 06-03-2023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 TIME: 5:22 PMDOB: 1970Vitals: 01/10/1712Temp: 36.5 ?C (97.7 ?F) 36.4 ?C (97.5 ?F) 36.1 ?C (97 ?F) 01/10/1716BP: 123/74 160/64 158/72 164/68 01/10/1712Pulse: 57 (!) 57 (!) 56 (!) 56 01/10/1712Resp: 16 16 11 11 01/10/1712SpO2: 95% 96% 99% 100%Validated Vital Signs: YesPOST ANES STATUS: No apparent anesthetic complications. The patient isappropriately hydrated with stable respiratory and cardiovascular status.Patient has safe and adequate airway control. The patient has appropriatepain relief and no significant post operative nausea or vomiting. Thepatient has achieved baseline mental status.Further assessment by Anesthesia Service: NoneOther Remarks:SIGNATURE: Noah Recinos MD PATIENT NAME: Bernard PatelTE: January 09, 2017 : 5:22 PM PAGER/CONTACT #: [facility] ANES PREOPon 01-09-2017 ANES PREOP HNO ID: [id number] thor: Go CurielaService: (none)Author Type: PhysicianType: Anesthesia PreOpFiled: 01/09/2017 1:06 PMNote Text: ANESTHESIOLOGY DAY OF SURGERY NOTESERVICE DATE: 01/09/2017SERVICE TIME: 1:05 PMDOB: 1970Procedure(s) (LRB):ORIF HAND (Right)Surgeon(s):Fabiano CarrilloasEstimated body mass index is 32.56 kg/(m2) as calculated from thefollowing: Height as of this encounter: 182.9 cm (6'). Weight as of this encounter: 108.9 kg (240 lb 1.3 oz).Most recent hematocrit and potassium results:No results found for this basename: HCT,HEMATOCRIT,K,POTASSIUMAN ES DOS/PREOP NOTE:Vitals: 01/09/1711BP: 110/59 109/57 123/74Pulse: (!) 52 57 (!) 57Resp: 14 16 16Temp: 36.5 ?C (97.7 ?F) 36.4 ?C (97.5 ?F)TempSrc: Oral TympanicSpO2: 95% 95% 96%Weight: 108.9 kg (240 lb 1.3 oz)Height: 182.9 cm (6')There is no problem list on file for this patient.PAST MEDICAL HISTORYDiagnosis Date- Kidney stone- NEGATIVE MEDICAL HISTORYPAST SURGICAL HISTORYProcedure Laterality Date- FRAGMENTING/KIDNEY STONE Right LithotripsyFAMILY HISTORYProblem Relation Age of Onset- Diabetes Mother- Stroke FatherSocial History:Social HistorySubstance Use Topics- Smoking status: Never Smoker- Smokeless tobacco: Not on file- Alcohol use NoNo current facility-administered medications on file prior to encounter.No current outpatient prescriptions on file prior to encounter.No current facility-administered medications for this encounter.Allergies: ALLERGIESNo Known AllergiesDOS EXAM: Adequate NPO status: YesAnesthetic risks, benefits, alternatives, personnel and consent discussed:YesPatient agrees to proceed: YesPrevious Anesthesia: No history of adverse event.Airway Assessment: MP 3; Neck ROM: Full ROM without neurologic symptoms;Airway Evaluation: No significant abnormalitiesDentition: Teeth intactAdditional Physical Exam:Lungs: Patient health status unchanged since recent history and physical.See history and physical for exam findings.Cardiac: Patient health status unchanged since recent history andphysical. See history and physical for exam findings.Additional Pertinent Findings: N/ABlood Products: Not anticipated for this procedure.Anesthetic Plan: General, Standard ASA MonitorsPain Management Plan: Parenteral or OralASA Class: 2Other Medical Problems: NoneChronic Beta Awa medication administered within 24 hours: N/AI have interviewed and examined the patient. I have reviewed the medicalrecord and/or the pre-anesthesia evaluation, pertinent labs, and testresults.Significant changes in the patient's condition since the History andPhysical, not otherwise documented in primary service progress notes: NoThis contains updated information obtained within 48 hours ofSurgery/Procedure.SIGNATUR E: Go Becerril MD PATIENT NAME: Bernard PatelTE: January 09, 2017 : 1:04 PM CSN: [id number] [facility] BRIEF OP NOTon 01-09-2017 BRIEF OP NOT HNO ID: [id number] thor: Donavon (Res) SubichinService: Plastic SurgeryAuthor Type: ResidentType: Brief Op NoteFiled: 01/09/2017 4:32 PMNote Text:BRIEF OPERATIVE / PROCEDURE NOTELOG ID: [id number]/Procedure Date: 01/09/2017Incision/Procedure Start Time: 1:38 PMIncision Close/Procedure End Time: 4:26 PMSurgeon(s)/Proceduralist(s ) and Drawing In Machine Tender(s):Surgeon(s) and Role: * Fabiano James - Primary * Donavon (Melissa) Slava - Resident - AssistingNo Additional StaffProcedure(s): ORIF Right Middle Finger, Amputation Right Index FingerAnesthesia: GeneralFindings: As aboveEstimated Blood Loss: 50 mlsSpecimens: Index FingerComplications: NonePre-Op/Pre-Procedure Diagnosis: RIGHT HAND PRESSER CRUSH INJURYPost-Op/Post-Procedure Diagnosis: RIGHT HAND PRESSER CRUSH INJURYSIGNATURE: Donavon Pedersen MD PATIENT NAME: Bernard PatelTE: January 09, 2017 : 4:30 PM PAGER/CONTACT #: [facility] ED NOTEon 01-09-2017 ED NOTE HNO ID: [id number] Author: Nuris (Rn) WINSTON Jiménez Service: Emergency Medicine Author Type: Registered Nurse Type: ED Notes Filed: 01/09/2017 11:44 AM Note Text: Patient informed of plan of care. [facility] ED NOTE HNO ID: [id number] thor: Herbert (Medic) Damaso MedicService: (none)Author Type: Economics Teacher and TechnicianType: ED NotesFiled: 01/09/2017 10:31 AMNote Text:Bed: ED-27Expected date: 01/09/17Expected time: 9:23 AMMeans of arrival: Other EMS FireComments:[place] Transfer/ Trauma Consult [facility] ED NOTE HNO ID: [id number] thor: Rosalee (Rn) MANDA Queenervice: Emergency MedicineAuthor Type: Registered NurseType: ED NotesFiled: 01/09/2017 10:31 AMNote Text:[facility] Pt was at work and glove became stuckin rollers and hand was sucked in. Pt has partial amputation of rightindex finger and crush injury to right second finger. Pt states that painis currently controlled, dr lesvia pickering and dr roberto carlos palma atbedside. Pt aANDo x3, denies any loc, cp, sob [facility] ED PROV NOTEon 01-09-2017 ED PROV NOTE HNO ID: [id number] thor: NOHELIA Alstonervice: Emergency MedicineAuthor Type: PhysicianType: ED Provider NotesFiled: 01/09/2017 11:03 AMNote Text:ED Provider NotePatient Name: Bernard GundersonMRN: [id number] DATE: 01/09/17HistoryPatient presents with:Hand InjuryHPIPAST MEDICAL HISTORYDiagnosis Date- NEGATIVE MEDICAL HISTORYNo past surgical history on file.No family history on file.Social HistorySocial History Main Topics- Smoking status: Never Smoker- Smokeless tobacco: Not on file- Alcohol use No- Drug use: No- Sexual activity: Not on fileALLERGIESNo Known AllergiesReview of SystemsPhysical ExamBP 110/59 Pulse 52 Temp (Src) 97.7 (Oral) Resp 14 Ht 6' 0" (1.83m) Wt 240 lb 1.3 oz (108.9kg) SpO2 95% BMI 32.55 kg/(m2).Physical ExamDiagnostic TestingED Labs Ordered and Reviewed - No data to displayProceduresMedical Decision Making / ED CourseED CourseNo diagnosis found.PlanThe patient sustained an injury to his right hand. His right index fingeras a near amputation distally and is angulated. In addition, he has sometenderness to his right middle finger. [facility] comminuted fractures of thewrist is the patient believes that he received a tetanus immunization inthe transferring facility. She is provided with antibiotics and analgesiahere. He is awaiting consultation from the hand service. He is currentlyin stable condition. I reviewed the resident's notes that are availableat this time.Attending NoteI evaluated the patient and personally participated in the betancur components. I agree with the resident's findings and plan as documented and havediscussed the case and management of the patient's care with the resident.Signature: FERDINAND Alstonate: 01/09/2017Time: 11:02 AMSIGNATURE: Kyle Alston MD01/09/17 1103 Normal [facility] HAND 2 VIEWS UNILATERALon HAND 2 VIEWS UNILATERAL Performed at [facility] APPROVED BY: Jerad Marx MD EXAM TITLE: RIGHT HAND 2 VIEWS DATE: 01/09/2017 15:01 COMPARISON: Right hand 3 views from outside institution dated 01/09/2017. CLINICAL INDICATION/HISTORY: Right hand injury. TECHNIQUE: AP, oblique, and lateral views were obtained of the right third through fourth digits. FINDINGS: Images demonstrate amputation of the second digit at the metacarpal-phalangeal joint level. There are 2 K wires noted fixating the third middle phalanx fracture. There is a thin curvilinear radiodense in the soft tissues of the third digit at the distal phalangeal level likely representing a retained radiopaque foreign body. IMPRESSION: Postsurgical changes of internal fixation of the right third digit. Status post amputation of the right second digit at the MCP joint level.Curvilinear retained radiopaque foreign body in the distal right third digit. Fluoroscopy time is 20 seconds. 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 Hand was trapped in rollers, thinlyspaced apart, not heated. Injury up to proximal phalange, 4th and 5thfingers grossly not involved. No previous episodes. Complains of pain. PRSconsulted for evaluation.FUNCTIONAL STATUS: IndependentPAST MEDICAL HISTORYDiagnosis Date- NEGATIVE MEDICAL HISTORYNo past surgical history on file.No family history on file.Social HistorySubstance Use Topics- Smoking status: Never Smoker- Smokeless tobacco: Not on file- Alcohol use No(Not in a hospital admission)ALLERGIESNo Known AllergiesCOMPLETE REVIEW OF SYSTEMS:GENERAL: No weight loss, malaise or feversHEENT: Negative for frequent or significant headaches, No changes inhearing or vision, no nose bleeds or other nasal problemsNECK: Negative for lumps, goiter, pain and significant neck swellingRESPIRATORY: Negative for cough, hemoptysis, wheezing, COPD, dyspnea orshortness of breathCARDIOVASCULAR: Negative for chest pain, leg swelling, hypertension, CHFor palpitationsGI: No nausea, vomiting, or diarrheaMUSCULOSKELETAL: Negative for joint pain or swelling, back pain or musclepainSKIN: right hand injuryENDOCRINE: Negative for cold or heat intolerance, polyuria, polydipsia andgoiterNEURO: No history of headaches, syncope, paralysis, seizures or tremorsOBJECTIVEPHYSICAL EXAM:GENERAL: Alert, no distress, cooperativeEYES: PERRLA, EOMIEARS: External ears normal, canals clearNOSE: Negative, Nares normal. Septum midline.NECK: No jugulovenous distention, No carotid bruits, Carotid pulse normalcontour, SuppleLUNGS: NegativeCARDIAC: NegativeABDOMEN: Abdomen soft, non-tender, BS normal, No masses or organomegalyEXTREMITIES: Sandrine WHALEN WNLRight Hand: Partial Amputation Right Index Finger near DIP joinht,Laceration radial side of Long finger with no sensation on radial sidedistal to laceration. Longitudinal laceration between MCP and PIP joint ofdorsal index finger. Thumb unaffected. Pain with movement. No involvementof palm. Sensation of remaining index finger intact.Multiple Metacarpel Fractures.Patient Vitals for the past 24 hrs: BP Temp Temp src Pulse Resp SpO2 Height Btghug57/20/17 1140 109/57 - - 57 16 95 % - -01/09/17 1018 110/59 36.5 ?C (97.7 ?F) Oral (!) 52 14 95 % 182.9 cm (6')108.9 kg (240 lb 1.3 oz)Body mass index is 32.56 kg/(m2).DATA:Diagnostic tests reviewed for today's visit:Reviewed outside dataASSESSMENT/PLANCrush Injury Right Hand-To OR for Revision and Repair Right Hand InjuriesSIGNATURE: Donavon Pedersen MD PATIENT NAME: Bernard GundersonDATE: January 09, 2017 : 11:46 AM PAGER/CONTACT #: [phone] Normal [facility] HOSPon 01-09-2017 Weight Patient:NeptaliCarmelo RN: Height:6' 0"(1.829 m)Weight:240 lb 1.3 oz (108.9 kg)Outpatient Medications as of 01/09/17:Patient has no current outpatient medications.Admission/Clinic Administered Medications as of 01/09/17:Patient has no admission medications.Problem List:No problem list on file for this patient.Allergies:No Known AllergiesDate Verified:01/09/17Lab ValuesNo results within the last 30 days for the following basenames: K,HCTNo progress notes entered within the past 30 days Normal [facility] Surgical Tissue Examon 01-09 Surgical Tissue Exam Test performed at [place] [address]NAME: BERNARD GUNDERSON [id number] REQUESTING: FABIANO JAMES M.D.FINAL DIAGNOSIS:INDEX FINGER, RIGHT HAND, AMPUTATION - PARTIALLY DENUDED SKIN, MINIMALSOFT TISSUE HEMORRHAGE AND UNREMARKABLE BONE, CLINICALLY TRAUMATICCRUSH INJURY.OPERATIVE PROCEDURE: Repair as necessary right handCLINICAL INFORMATION: Hand injury, Right, Initial encounterGROSS DESCRIPTION:Right amputated index fingerReceived in formalin labeled right amputated index finger is afragmented digit with surrounding skin and soft tissue measuring 13 x 4x 3 cm. The nail is present and appears grossly unremarkable. Thesurrounding skin appears focally disrupted and denuded. The bone isfragmented with focal areas of hemorrhage. A lesion is not identified. Die Sizer sections are submitted as follows: 1 - soft tissue; 2 -segment of bone after a period of decalcification. ARH:patricia ROSADO M.D.,PATHOLOGIST(Electronic signature on file)Signed out: 01/15/2017 15:07PRINTED: 01/15/2017 Page 1 of 1 Normal [facility] Comment on above: Performed By: #### S URG ####[place] [address] Auto Diffon 12-10-2016 Basophils Auto #/vol (Bld) 0.1 E3/mcL Normal 0.0-0.2 [facility] Comment on above: Order Comment: Order Added by Discern Expert. Performed By: #### 2 [id number] ####SUSAN [address]asR[address]kTitq[address] [place] [address] Basophils/100 WBC Auto (Bld) 0.9 % Normal 0.0-2.0 [facility] Comment on above: Order Comment: Order Added by Discern Expert. Performed By: #### 2 [id number] ####SUSAN SalasLwjApye[address] [place] [address] Eos Absolute 0.2 E3/mcL Normal 0.0-0.7 [facility] Comment on above: Order Comment: Order Added by Discern Expert. Performed By: #### 2 776579 ####SUSAN SalasBepQocc[address] [place] [address] Eosinophils/100 leukocytes 2.8 % Normal 0.0-11.0 [facility] Comment on above: Order Comment: Order Added by Discern Expert. Performed By: #### 2 [id number] ####SUSAN SalasGhtQklt1848 [place] [address] Lymphocytes 2.2 E3/mcL Normal 1.2-3.4 [facility] Comment on above: Order Comment: Order Added by Discern Expert. Performed By: #### 2 [id number] ####SUSAN SalasMpeBftu[address] [place] [address] Lymphocytes/100 leukocytes 31.0 % Normal 20.0-55.0 [facility] Comment on above: Order Comment: Order Added by Discern Expert. Performed By: #### 2 253522 ####SUSAN SalasNouPmhd[address] [place] [address] Haakon Absolute 0.7 E3/mcL Normal 0.0-0.7 [facility] Comment on above: Order Comment: Order Added by Discern Expert. Performed By: #### 2 630771 ####SUSAN SalasUvvOiao[address] [place] [address] Monocytes/100 leukocytes 10.8 % High 0.0-10.0 [facility] Comment on above: Order Comment: Order Added by Discern Expert. Performed By: #### 2 [id number] ####SUSAN SalasGstNeku[address] [place] [address] Neutro Absolute 3.8 E3/mcL Normal 1.4-6.5 [facility] Comment on above: Order Comment: Order Added by Discern Expert. Performed By: #### 2 992988 ####SUSAN SalasAypYkvn[address] [place] [address] Neutro Auto 54.5 % Normal 37.0-75.0 [facility] Comment on above: Order Comment: Order Added by Discern Expert. Performed By: #### 2 376704 ####SUSAN Velazquezo[address] [place] [address] BMPon 12-10-2016 BUN/Creatinine Ratio 18.5 ratio Normal 5.4-30.0 [facility] Comment on above: Performed By: #### 2 307035 ####SUSAN Ar[address] [place] [address] Calcium 8.7 mg/dL Normal 8.4-10.2 [facility] Comment on above: Performed By: #### 2 829897 ####S[address]AN [address] [place] [address] Chloride 110 mmol/L High 98-107 [facility] Comment on above: Performed By: #### 2 141244 ####SUSAN SalasYhnCvcs[address] [place] [address] CO2 19.9 mmol/L Low 24.0-30.0 [facility] Comment on above: Performed By: #### 2 180825 ####S[address]AN [address] [place] [address] Creatinine 1.3 mg/dL Normal 0.6-1.3 [facility] Comment on above: Performed By: #### 2 821494 ####SUSAN SalasFjkRkgb[address] [place] [address] Glucose mass conc 99 mg/dL Normal 70-99 [facility] Comment on above: Performed By: #### 2 947112 ####SUSAN SalasAzgYags[address] [place] [address] Potassium molar conc 3.7 mmol/L Normal 3.5-5.1 [facility] Comment on above: Performed By: #### 2 855565 ####S[address]AN [address] [place] [address] Sodium 136 mmol/L Normal 136-145 [facility] Comment on above: Performed By: #### 2 157402 ####SUSAN SalasKbdNoaa[address] [place] [address] Urea nitrogen 24 mg/dL High 7-18 [facility] Comment on above: Performed By: #### 2 822468 ####SUSAN SalasCevJvco[address] [place] [address] CBC w/ Auto Diffon Erythrocyte distribution width Auto Ratio (RBC) 13.2 % Normal 11.5-14.5 [facility] Comment on above: Performed By: #### 2 302187 ####SUSAN [address]azquezo[address] [place] [address] Erythrocytes (RBC) 5.08 E6/mcL Normal 3.90-6.10 [facility] Comment on above: Performed By: #### 2 407545 ####SUSAN [address]que[address] [place] [address] Hematocrit (HCT) 46.5 % Normal 42.0-52.0 [facility] Comment on above: Performed By: #### 2 448182 ####SUSAN [address]que[address] [place] [address] Hemoglobin mass conc (Bld) 16.0 g/dL Normal 13.5-18.0 [facility] Comment on above: Performed By: #### 2 205322 ####SUSAN [address]que[address] [place] [address] MCH 31.5 pg High 27.0-31.0 [facility] Comment on above: Performed By: #### 2 383462 ####SUSAN SalasRyfFxdx[address] [place] [address] MCHC mass conc (RBC) 34.5 g/dL Normal 33.0-37.0 [facility] Comment on above: Performed By: #### 2 295257 ####SUSAN SalasBqnSosm[address] [place] [address] MCV 91.5 fL Normal 78.0-100.0 [facility] Comment on above: Performed By: #### 2 883844 ####SUSAN SalasHxqFuxm7503 [place] [address] Platelet mean volume (PMV) 7.1 fL Low 7.4-11.0 [facility] Comment on above: Performed By: #### 2 512890 ####SUSAN [address] [place] [address] Platelets 241 E3/mcL Normal 130-400 [facility] Comment on above: Performed By: #### 2 128576 ####SUSAN [address] [place] [address] WBC (Leukocytes) 6.9 E3/mcL Normal 3.6-11.0 [facility] Comment on above: Performed By: #### 2 996373 ####SUSAN [address]azque[address] [place] [address] CT Abdomen/Pelvis w/o Contra ston 12-10-2016 CT Abdomen/Pelvis w/o Contrast Exam Date/Time:12/10/2016 02:06 EDTReason for Exam:PainReportEXAM: CT Abdomen/Pelvis w/o ContrastCLINICAL STATEMENT: Right flank pain, worse today. History of kidney stones.COMPARISON: None.TECHNIQUE: CT examination of the abdomen and pelvis without IV contrast.Coronal and sagittal reformations were performed.Dose reduction techniques were achieved by using automated exposure controland/or adjustment of mA and/or kV according to patient size and/or use ofiterative reconstruction technique.FINDINGS: Lung bases are clear.ABDOMEN: Fatty infiltration of the liver with geographic focal fatty sparingadjacent to the chris hepatis. Gallbladder is unremarkable. Spleen, adrenalglands, and pancreas are normal in appearance. No abdominal lymphadenopathy. 3mm nonobstructive left lower pole intrarenal calculus with density of 489Hounsfield units. Additional 3 mm nonobstructive left upper pole intrarenalcalculus. 1.6 cm partially exophytic right upper pole renal cyst. 4 mmnonobstructive right lower pole intrarenal calculous with density of 775Hounsfield units. Additional 2 mm nonobstructive right lower pole intrarenalcalculus. Mild right hydronephrosis.PELVIS: Moderate right hydroureter secondary to at least partially obstructing8 x 6 x 5 mm distal right ureteral stone with density 1264 Hounsfield units.This resides approximately 3 cm proximal to the right ureterovesical junction.No additional ureteral stone. No bladder stone. No pelvic free fluid. No pelviclymphadenopathy. Small fat-containing left inguinal hernia. Circumscribed focusof fat adjacent to the mid descending colon reflecting the sequela of priorepiploic appendagitis. No associated acute inflammatory change. Normalappendix. Small fat-containing periumbilical hernia. No evidence for small orlarge bowel obstruction. No free air.No suspicious osteolytic or osteoblastic lesion.IMPRESSION:1. Mild right hydronephrosis with moderate right hydroureter secondary to atleast partially obstructing 8 x 6 x 5 mm distal right ureteral stone residingapproximately 3 cm proximal to the right ureterovesical junction. Additionalbilateral nonobstructive intrarenal calculi.Exam Date/Time:12/10/2016 02:06 EDTReport2. Fatty infiltration of the liver.3. Normal appendix.4. Small fat-containing left inguinal hernia. Small fat-containingperiumbilical hernia. FINAL REPORT Dictated: 12/10/2016 3:54 am Cameron Thomas MD LSigned (Electronic Signature): 12/10/2016 3:54 amSigned by: Cameron Thomas MD Technologist: AM Normal [facility] Hep Func Panelon 12-10-2016 Alanine aminotransferase (ALT) 33 Int._Unit/L Normal 10-40 [facility] Comment on above: Performed By: #### 2 [id number] ####SUSAN SalasAbcNukh[address] [place] [address] Albumin 4.3 g/dL Normal 3.2-5.0 [facility] Comment on above: Performed By: #### 2 375394 ####SUSAN [address] [place] [address] Albumin/Globulin Ratio 1.7 {ratio} Normal 1.1-1.9 [facility] Comment on above: Performed By: #### 2 109072 ####SUSAN SalasWqdEopr4048 [place] [address] Alk Phos 50 Int._Unit/L Normal 42-121 [facility] [facility] Comment on above: Performed By: #### 2 [id number] ####SUSAN [address] [place] [address] Aspartate aminotransferase (AST) 25 Int._Unit/L Normal 10-42 [facility] Comment on above: Performed By: #### 2 [id number] ####SUSAN SxcRcjs9818 [place] [address] Bili Direct <.10 Normal .00-.20 [facility] Comment on above: Performed By: #### 2 [id number] ####SUSAN AwpAfae9712 [place] [address] Bili Indirect >0.3 Normal [facility] Comment on above: Result Comment: No e stablished ranges available for the Indirect Biliruben. Performed By: #### 2 [id number] ####SUSAN AiyIeob3887 [place] [address] Bili Total 0.4 mg/dL Normal 0.2-1.0 [facility] Comment on above: Performed By: #### 2 [id number] ####SUSANDavid SalasQcyFads2726 [place] [address] Globulin 2.6 g/dL Normal 2.0-4.0 [facility] Comment on above: Performed By: #### 2 [id number] ####SUSAN GmtFpfy2279 [place] [address] Protein 6.9 g/dL Normal 6.4-8.3 [facility] Comment on above: Performed By: #### 2 [id number] ####SUSAN ZtoDruq9760 [place] [address] Lipase Levelon 12-10-2016 Lipase Lvl 39 U/L Normal 8-57 [facility] Comment on above: Performed By: #### 2 [id number] ####SUSAN TksTini3438 [place] [address] UA Completeon 12-10-2016 UA Blood 3+ Normal Negative [facility] Comment on above: Performed By: #### 8 [id number] ####SUSAN Urinalysis Automated Wewtttfjmm0184 [place] [address] UA Clarity Clear Normal Clear [facility] Comment on above: Performed By: #### 8 [id number] ####SUSAN Urinalysis Automated Xxieshnutu7335 [place] [address] UA Leuk Est Negative Normal Negative [facility] Comment on above: Performed By: #### 8 [id number] ####SUSAN Urinalysis Automated Nszlbbislp7027 [place] [address] UA Mucous Occasional Abnormal Trace [facility] Comment on above: Performed By: #### 8 [id number] ####SUSAN Urinalysis Automated Hrrihuxssp6936 [place] [address] UA Nitrite Negative Normal Negative [facility] Comment on above: Performed By: #### 8 [id number] ####SUSAN Urinalysis Automated Tzdqaayohk5860 [place] [address] UA pH 5.0 Normal 4.6-8.0 [facility] Comment on above: Performed By: #### 8 [id number] ####SUSAN Urinalysis Automated [address] [place] [address] UA Protein Negative Normal Negative [facility] Comment on above: Performed By: #### 8 [id number] ####SUSAN Urinalysis Automated [address] [place] [address] UA Spec Grav 1.029 Normal 1.003-1.030 [facility] Comment on above: Performed By: #### 8 [id number] ####SUSAN Urinalysis Automated [address] [place] [address] UA Squam Epithelial 0-5 Normal 0-5 [facility] Comment on above: Performed By: #### 8 [id number] ####SUSAN Urinalysis Automated [address] [place] [address] UA Urobilinogen Negative Normal [facility] Comment on above: Performed By: #### 8 [id number] ####SUSAN Urinalysis Automated Brjrprjjcb0571 [place] [address] UA WBC 5-10 Abnormal 0-5 [facility] Comment on above: Performed By: #### 8 [id number] ####SUSAN Urinalysis Automated [address] [place] [address] Urine, color Yellow Normal Yellow [facility] Comment on above: Performed By: #### 8 [id number] ####SUSAN Urinalysis Automated Efnjbpkzzi1717 [place] [address] Urine, erythrocytes /uL Abnormal 0-3 [facility] Comment on above: Performed By: #### 8 [id number] ####SUSAN Urinalysis Automated Glwtidthkj8265 [place] [address] Urine, glucose Negative Normal Negative [facility] Comment on above: Performed By: #### 8 [id number] ####SUSAN Urinalysis Automated Fefpyhxmmm9188 [place] [address] Urine, ketones presence Negative Normal Negative [facility] Comment on above: Performed By: #### 8 [id number] ####SUSAN Urinalysis Automated O[address]frvzzuv4111 [place] [address] Urine, urobilinogen Negative Normal Negative [facility] Comment on above: Performed By: #### 8 [id number] ####SUSAN Urinalysis Automated Vfamxhohxl0111 [place] [address] XR Abdomen APon 12-10-2016 XR Abdomen AP Exam Date/Time:2016 03:39 EDTReason for Exam:Kidney stoneReportSINGLE SUPINE AP VIEW OF THE ABDOMEN.COMPARISON: CT 12/10/2016 at 1:51 AM.MEDICAL HISTORY: Right flank pain, kidney stones.FINDINGS: 6 mm calcification projected over the right aspect of the pelviscorresponding to the distal ureteral stone noted by CT. This is notsignificantly changed in position. Pelvic phleboliths are present. 2 mmcalcification projected over the lower pole of the left kidney. Right renalsilhouette partially obscured by overlying stool and bowel gas. Nonobstructivebowel gas pattern. Right lateral aspect of the abdomen and upper abdomen areincompletely included on this examination.IMPRESSION:6 mm stone projected over the right aspect of the pelvis corresponding to thedistal ureteral stone noted by CT, unchanged in position. 2 mm calcificationprojected over the lower pole of the left kidney. FINAL REPORT Dictated: 12/10/2016 4:41 am Cameron Thomas MD LSigned (Electronic Signature): 12/10/2016 4:41 amSigned by: Cameron Thomas MD Technologist: ALBERT Read [facility] eGFRon 12-10-2016 eGFR (non-black) 60 mL/min/1.73 m2 [facility] Comment on above: Order Comment: Order added by Discern Expert. Performed By: #### 1 [id number] ####SUSAN VjxFubl5912 [place] [address] eGFR (non-black) mL/min/{1.73_m2} Normal [facility] Comment on above: Order Comment: Order added by Discern Expert. Performed By: #### 1 [id number] ####SUSAN YtnGzws7088 [place] [address] US Renalon 10-17-2016 US Renal Exam Date/Time:2016 15:48 EDTReason for Exam:RIGHT FLANK PAINReportPROCEDURE: US Renal, 10/17/2016 3:20 PM.CLINICAL INDICATIONS: Intermittent right flank abdominal pain for 2 months,history of kidney stones.COMPARISON: None.TECHNIQUE: Renal and bladder sonogram.FINDINGS:Right kidney: 11.6 x 5.3 x 5.2 cm.Left kidney: 12.2 x 6.2 x 5.8 cm.Prevoid urinary bladder volume: 81 mL.Postvoid urinary bladder volume: 0 mL.There is mild hepatic steatosis seen.The renal parenchyma is normal in echogenicity and cortical thickness.Hydronephrosis or shadowing calculus is not evident. 1.9 x 1.7 x 1.7 cm cystupper pole right kidney is seen.There is incomplete urinary bladder distention. Ureteral jets are presentbilaterally. No postvoid residual is noted.IMPRESSION:1. Mild hepatic steatosis.2. No hydronephrosis or shadowing calculus.3. 1.9 cm upper pole right renal cyst.4. Incomplete urinary bladder distention.5. No postvoid urinary bladder residual. FINAL REPORT Dictated: 10/17/2016 6:44 pm Yosef Loving MD (Electronic Signature): 10/17/2016 6:44 pmSigned by: Yosef Loving MD Technologist: [facility] Vital Signs Date Time Vital Sign Value Performing Clinician Facility 07-13-2024 14:38-0400 Body height 182.[address] Cameron Garcia DO Work Phone: [facility] 07-13-2024 14:38-0400 Body mass index (BMI) [Ratio] 35.3 kg/m2 Dr. Cameron Garcia DO Work Phone: [facility] 07-13-2024 14:38-0400 Body temperature 96.1 [degF] Dr. Cameron Garcia DO Work Phone: [facility] 07-13-2024 14:38-0400 Body weight 118.[address] Cameron Garcia DO Work Phone: [facility] 07-13-2024 14:38-0400 Diastolic blood pressure 70 mm[Hg] Dr. Cameron Garcia DO Work Phone: [facility] 07-13-2024 14:38-0400 Heart rate 59 /min Dr. Cameron Garcia DO Work Phone: [facility] 07-13-2024 14:38-0400 Respiratory rate 16 /min Dr. Cameron Garcia DO Work Phone: [facility] 07-13-2024 14:38-0400 SaO2% (BldA) [Mass fraction] 94 % Dr. Cameron Garcia DO Work Phone: [facility] 07-13-2024 14:38-0400 Systolic blood pressure 118 mm[Hg] Dr. Cameron Garcia DO Work Phone: [facility] 06-16-2023 15:25-0400 Body height 182.[address] Bill Booker Work Phone: [facility] 06-16-2023 15:25-0400 Body mass index (BMI) [Ratio] 34.9 kg/m2 Dr. Bill Booker Work Phone: [facility] 06-16-2023 15:25-0400 Body temperature 97.3 [degF] Dr. Bill Booker Work Phone: [facility] 06-16-2023 15:25-0400 Body weight 117.[address] Bill Booker Work Phone: [facility] 06-16-2023 15:25-0400 Diastolic blood pressure 78 mm[Hg] Dr. Bill Booker Work Phone: [facility] 06-16-2023 15:25-0400 Heart rate 58 /min Dr. Bill Booker Work Phone: [facility] 06-16-2023 15:25-0400 Respiratory rate 16 /min Dr. Bill Booker Work Phone: [facility] 06-16-2023 15:25-0400 SaO2% (BldA) [Mass fraction] 96 % Dr. Bill Booker Work Phone: [facility] 06-16-2023 15:25-0400 Systolic blood pressure 132 mm[Hg] Dr. Bill Booker Work Phone: [facility] 06-03-2023 07:39-0400 Body temperature 97.11 [degF] Krislyn Aberegg PA Work Phone: [facility] 06-03-2023 07:39-0400 Body weight 115.3 kg Krislyn Aberegg PA Work Phone: [facility] 06-03-2023 07:39-0400 Diastolic blood pressure 78 mm[Hg] Krislyn Aberegg PA Work Phone: [facility] 06-03-2023 07:39-0400 Heart rate 72 /min Krislyn Aberegg PA Work Phone: [facility] 06-03-2023 07:39-0400 Respiratory rate 20 /min Krislyn Aberegg PA Work Phone: [facility] 06-03-2023 07:39-0400 SaO2% (BldA) [Mass fraction] 98 % Krislyn Aberegg PA Work Phone: [facility] 06-03-2023 07:39-0400 Systolic blood pressure 148 mm[Hg] Krislyn Aberegg PA Work Phone: [facility] Encounters Encounter Date Encounter Type Care Provider Facility Start: 07-14-2024 End: 07-14-[address] Cameron Garcia DO Work Phone: [facility] Work Phone: Start: 07-14-2024 End: 07-14-[address] Cameron Allen DO -Radiology, [place] Work Phone: Start: 07-13-2024 End: 07-13-[address] Cameron Allen DO -[facility] Work Phone: Start: 07-13-2024 End: 07-14-2024 ambulatory Cameron Garcia Facility:[facility] Start: 01-12-2024 End: 01-12-2024 ambulatory Cameron Garcia Facility:[facility] Start: 06-16-2023 End: 06-16-[address] Bill Booker Work Phone: [facility] Work Phone: Start: 06-16-2023 End: 06-16-[address] Bill Booker Work Phone: [facility] Work Phone: Start: 06-03-2023 Telephone encounter Chadwick CASTELLON Work Phone: [facility] Comment on above: Results Start: 06-03-2023 End: 06-03-2023 ambulatory Facility:[facility] Start: 06-03-2023 End: 06-03-2023 Patient encounter procedure Chadwick CASTELLON Work Phone: [facility] Comment on above: Sore throat (Primary Dx); URI, acute Start: 04-29-2022 End: 04-29-2022 ambulatory DO TENZIN PACK Facility:[id number] Start: 07-29-2021 End: 07-29-2021 Patient encounter procedure [facility] Start: 10-25-2018 End: 10-25-2018 Patient encounter procedure CINDY AMA [facility] Start: 03-03-2017 End: 03-03-2017 Ambulatory LULU (OT) KOUTRODIMOS Facility:[facility] Start: 02-27-2017 Ambulatory Fabiano Salcedo [facility] Start: 02-16-2017 End: 02-16-2017 Emergency department patient visit Bill Hays Facility:[facility] Start: 01-09-2017 End: 01-09-2017 Patient encounter procedure Fabiano James Work Phone: [facility] Start: 01-09-2017 Results Only Fabiano valenzuela Work Phone: [facility] Start: 01-09-2017 End: 01-10-2017 Emergency department patient visit FARZAD IRWIN Facility:[facility] Start: 12-10-2016 End: 12-10-2016 Emergency department patient visit Bill Hays Facility:[facility] Start: 10-17-2016 End: 10-18-2016 Ambulatory Bill Nelson H[place] Facility:[facility] Start: 10-13-2016 Ambulatory Bill Nelson Hays Facility :[facility] Procedures Date Procedure Procedure Detail Performing Clinician Start: 07-14-2024 Plain X-ray of shoulder Dr. Cameron Garcia DO Work Phone: Start: 06-03-2023 STREP A MOLECULAR (POC) [facility] Provider Start: 04-29-2022 Colonoscopy Chadwick CASTELLON Work Phone: Start: 01-09-2017 CONVERTED SURGICAL PATHOLOGY Fabiano James Work Phone: Plan of Treatment Date Care Activity Detail Author Start: 01-09-2027 Urine microalbumin profile DTaP,Tdap,Td Vaccine (2 - Td or Tdap) [facility] Start: 04-29-2023 Screening for malign ant neoplasm of colon [facility] Start: 03-23-2023 Depression Assessment Depression Ass essment [facility] Start: 11-21-2022 Covid-19 Vaccine ( season) Covid-19 Vaccine () [facility] Start: 11-21-2022 Influenza vaccination Influenza Vacc ine (#1) [facility] Start: 03-06-2021 Shingrix Vaccine (2 of 2) Shingrix Vaccine (2 of 2) [facility] Start: 11-22-2019 Influenza vaccination INFLUENZA (#1) [facility] Start: 01-03-2016 DIABETES SCREEN [facility] Start: 01-03-2016 Diabetes Screening Diabetes Screenin g [facility] Start: 01-03-2016 Screening for malign ant neoplasm of colon [facility] Start: 2006 Lipid panel Lipid Screening [facility] Start: 2006 LIPID SCREEN LIPID SCREEN [facility] Start: 1990 Hepatitis B Vaccine (1 of 3 - 19+ 3-dose series) Hepatitis B Vaccine (1 of 3 - 19+ 3-dose series) [facility] Start: 1990 Urine microalbumin profile DTAP,TDAP,TD (1 - Tdap) [facility] Start: 1989 HEPATITIS C SCREENING HEPATITIS C [facility] Start: 1989 Hepatitis C screening Hepatitis C [facility] Start: 1989 HIV SCREENING HIV SCREENING [facility] Start: 1989 HIV screening HIV Screening [facility] COVID & INFLUENZA A/ B & RSV NAAT, ROUTINE COVID & INFLUENZA A/B & RSV NAAT, ROUTINE Microbiology Routine URI, acute Ordered: 06/03/2023 [facility] Work Phone: Comment on above: Ordered: 06/03/2023 Immunizations Immunization Date Immunization Notes Care Provider Lonny mantilla 01-09-2017 tetanus toxoid, redu johanny diphtheria toxoid, and acellular pertussis vaccine, adsorbed [facility] Payers Date Payer Category Payer Unknown [id number] 2024 Self-pay [id number] 2022 Private Health Insurance [id number] 2022 Private Health Insurance [facility] [employer] [id number] 2022-Present [phone] [address] [place] AGUIR[place] [address] PPO [id number] 2017 Unknown [facility] YONATAN O [id number] 2017-Present MCO [id number] 2016 Unknown 2009 Unknown [employer] BLUE CARD PPO [id number] 2009-Present PPO [id number] 1971 Unknown [id number] 1971 Unknown [id number] Unknown [id number] Unknown [id number] Unknown [id number] Unknown [id number] Unknown [id number] Social History Date Type Detail Facility Start: 01-09-2017 End: 06-16-2023 Tobacco smoking status COIS Never smoker [facility] Start: 01-09-2017 End: 06-03-2023 Alcohol intake Current non-drinker of alcohol (finding) [facility] Start: 1970 Sex Assigned At Not on file C [facility] Start: 04-14-2019 End: 06-16-2023 Tobacco smoking status COIS Unknown if ever smoked [facility] Start: 03-29-2019 Non-smoker [facility] Start: 1970 Sex Assigned At Male [facility] Start: 06-03-2023 History of Social function [facility] Start: 06-03-2023 Tobacco use panel [facility] Start: 07-19-2024 Sex Male (finding) [facility] Medical Equipment Procedure Code Equipment Code Equipment Origin al Text Equipment Identifier Dates Wire Tyler .035in 2 Trocar 5.5in Fixation - [id number] Start: 01-09-2017 NOLA ELLISON FDA Start: 04-04-2019 MESH,3DMAX LEFT LG [id number] FDA Start: 04-04-2019 MESH,VENTLEX ST MED 6.4CM FDA Start: 04-04-2019 TACKER,SECURE STRAP FDA Start : 04-04-2019 NOLA ELLISON FDA Start: 04-04-2019 MESH,3DMAX LEFT LG [id number] FDA Start: 04-04-2019 MESH,VENTLEX ST MED 6.4CM FDA Start: 04-04-2019 TACKER,SECURE STRAP FDA Start : 04-04-2019 NOLA ELLISON FDA Start: 04-04-2019 MESH,3DMAX LEFT LG [id number] FDA Start: 04-04-2019 MESH,VENTLEX ST MED 6.4CM FDA Start: 04-04-2019 TACKER,SECURE STRAP FDA Start : 04-04-2019 Radiology Diagnostic study note 07-14-2024 Note Date & Type Note Facility 07-14-2024 Radiology Diagnostic study note [facility] Imaging Services [address] [place] [address] [id number] Shoulder min 2 Views MR#: [id number] Acct: [id number] Name: BERNARD GUNDERSON Rep #: [id number] : 1970 M 54 From: Regino Hampton DO PCP: Dr. Cameron Garcia DO Status: RE G CLI Study:Shoulder min 2 Views Date of Exam: 07/14/24 Exam# [id number] Ordering Dr: Do kolby Garcia DO PROCEDURE: SHOULDER MIN 2 VIEWS 07/14/2024 REASON FOR EXAM: SHOULDER PAIN TECHNIQUE: Four views of the left shoulder COMPARISON: None FINDINGS: See impression RAD/Shoulder min 2 Views IMPRESSION: Negative for acute fracture or malalignment. No significant arthropathy. Reading Location: [facility] CC: Dr. Cameron Garcia, DO ~ Chief Mechanical Engineer: Signed [facility] Evaluation note 07-13-2024 Note Date & Type Note Facility 07-13-2024 Evaluation note Diagnosis Onset Date Resolution Rotator cuff syndrome acute Apr il 2024 2:33pm [facility] Work Phone: Note 06-03-2023 Telephone Encounter - Martine Montiel LPN - 06/03/2023 8:04 PM EDTTelephone Encounter - Chadwick Bryan PA - 06/03/2023 6:50 PM EDT Note Date & Type Note Facility 06-03-2023 Miscellaneous Notes Formattin g of this note might be different from the original. Patient notified.Martine Montiel LPN Please call patient let him know he tested positive for influenza A. He is out of the window for treatment with Tamiflu. Continue supportive treatment at home. documented in this encounter [facility] Progress note 06-03-2023 Note Date & Type Note Facility 06-03-2023 Note HNO ID: [id number] Author: CHADWICK BRYAN PA Service: ? Author Type: Physician Drawing In Machine Tender Type: Progress Notes Filed: 06/03/2023 07:59 Note Text: This note was created using Litblocriter. Subjective Bernard Gunderson is a 53 year old male. HPI 53-year-old male presents for sore throat, cough, headache, congestion, chills and sweating for 4 days. Patient states about 4 days ago he started getting nasal congestion, cough and sore throat. He has had a headache. He has felt feverish and been sweating with chills. He has not actually taken his temperature. He states he is around sick contacts, but has not been exposed to anything specific that he is aware of. He has been taking DayQuil, NyQuil and Motrin at home. No vomiting or diarrhea. Still able to eat and drink. No chest pain or shortness of breath. No history of COPD or asthma. PAST MEDICAL HISTORY Diagnosis Date Kidney stone NEGATIVE MEDICAL HISTORY PAST SURGICAL HISTORY Procedure Laterality Date LITHOTRIPSY XTRCORP SHOCK WAVE Right Lithotripsy ALLERGIES Patient has no known allergies. MEDICATIONS Potassium Citrate 15 mEq TbER cefADROxil (DURICEF) 500 mg capsule Take 1 capsule by mouth twice daily. (Patient not taking: Reported on 06/03/2023) oxyCODONE-acetaminophen (PERCOCET) 5-325 mg tablet Take 2 tablets by mouth every 4 hours as needed. (Patient not taking: Reported on 06/03/2023) FAMILY HISTORY Problem Relation Age of Onset Diabetes Mother Stroke Father Social History Tobacco Use Smoking status: Never Substance Use Topics Alcohol use: No Drug use: No Review of Systems Constitutional: Positive for chills and diaphoresis. Negative for fever. HENT: Positive for congestion and sore throat. Respiratory: Positive for cough. Negative for shortness of breath. Gastrointestinal: Negative for abdominal pain, diarrhea and vomiting. Neurological: Positive for headaches. Objective BP 148/78 Pulse 72 Temp 36.2 ?C (97.1 ?F) Resp 20 Wt 115.3 kg (254 lb 3.1 oz) SpO2 98% BMI 34.47 kg/m? Physical Exam Vitals and nursing note reviewed. Constitutional: General: He is not in acute distress. Appearance: Normal appearance. He is not toxic-appearing. HENT: Right Ear: Tympanic membrane and ear canal normal. Left Ear: Tympanic membrane and ear canal normal. Nose: Nose normal. Mouth/Throat: Mouth: Mucous membranes are moist. Pharynx: Uvula midline. Posterior oropharyngeal erythema present. Tonsils: No tonsillar exudate or tonsillar abscesses. 1+ on the right. 1+ on the left. Eyes: Conjunctiva/sclera: Conjunctivae normal. Cardiovascular: Rate and Rhythm: Normal rate and regular rhythm. Pulmonary: Effort: Pulmonary effort is normal. Breath sounds: Normal breath sounds. No wheezing, rhonchi or rales. Skin: General: Skin is warm and dry. Neurological: Mental Status: He is alert. Assessment and Plan ASSESSMENT/PLAN: 1. Sore throat - ICD9: 462, ICD10: J02.9 (primary diagnosis) - suspect viral - Group A strep molecular testing negative - Discussed supportive care treatment with fluids, rest and analgesia. - The patient may also use warm salt water gargles, throat lozenges and/or OTC throat spray as needed. 2. URI, acute - ICD9: 465.9, ICD10: J06.9 - Discussed viral etiology and rationale for treatment. - Symptomatic treatment with prn analgesia - Supportive care with fluids and rest - COVID AND INFLUENZA A/B AND RSV NAAT, ROUTINE -Out of window for Tamiflu and antiviral. -Rx for Tessalon Perles for cough Diagnosis and treatment plan were discussed and questions were answered to the patient's satisfaction. Pt acknowledged understanding of concepts and follow up plan. Specific signs and symptoms that would indicate the need for higher level of care were discussed in detail warranting prompt ER evaluation. CANDE Wright [facility] History of Present illness Narrative 06-03-2023 Chadwick Bryan PA - 06/03/2023 7:49 AM EDT Note Date & Type Note Facility 06-03-2023 History of Presen t illness Narrative This note was created using Infomouster. Subjective Bernard Gunderson is a 53 year old male. HPI 53-year-old male presents for sore throat, cough, headache, congestion, chills and sweating for 4 days. Patient states about 4 days ago he started getting nasal congestion, cough and sore throat. He has had a headache. He has felt feverish and been sweating with chills. He has not actually taken his temperature. He states he is around sick contacts, but has not been exposed to anything specific that he is aware of. He has been taking DayQuil, NyQuil and Motrin at home. No vomiting or diarrhea. Still able to eat and drink. No chest pain or shortness of breath. No history of COPD or asthma. PAST MEDICAL HISTORY Diagnosis Date Kidney stone NEGATIVE MEDICAL HISTORY PAST SURGICAL HISTORY Procedure Laterality Date LITHOTRIPSY XTRCORP SHOCK WAVE Right Lithotripsy ALLERGIES Patient has no known allergies. MEDICATIONS Potassium Citrate 15 mEq TbER cefADROxil (DURICEF) 500 mg capsule Take 1 capsule by mouth twice daily. (Patient not taking: Reported on 06/03/2023) oxyCODONE-acetaminophen (PERCOCET) 5-325 mg tablet Take 2 tablets by mouth every 4 hours as needed. (Patient not taking: Reported on 06/03/2023) FAMILY HISTORY Problem Relation Age of Onset Diabetes Mother Stroke Father Social History Tobacco Use Smoking status: Never Substance Use Topics Alcohol use: No Drug use: No Review of Systems Constitutional: Positive for chills and diaphoresis. Negative for fever. HENT: Positive for congestion and sore throat. Respiratory: Positive for cough. Negative for shortness of breath. Gastrointestinal: Negative for abdominal pain, diarrhea and vomiting. Neurological: Positive for headaches. Objective BP 148/78 Pulse 72 Temp 36.2 C (97.1 F) Resp 20 Wt 115.3 kg (254 lb 3.1 oz) SpO2 98% BMI 34.47 kg/m Physical Exam Vitals and nursing note reviewed. Constitutional: General: He is not in acute distress. Appearance: Normal appearance. He is not toxic-appearing. HENT: Right Ear: Tympanic membrane and ear canal normal. Left Ear: Tympanic membrane and ear canal normal. Nose: Nose normal. Mouth/Throat: Mouth: Mucous membranes are moist. Pharynx: Uvula midline. Posterior oropharyngeal erythema present. Tonsils: No tonsillar exudate or tonsillar abscesses. 1+ on the right. 1+ on the left. Eyes: Conjunctiva/sclera: Conjunctivae normal. Cardiovascular: Rate and Rhythm: Normal rate and regular rhythm. Pulmonary: Effort: Pulmonary effort is normal. Breath sounds: Normal breath sounds. No wheezing, rhonchi or rales. Skin: General: Skin is warm and dry. Neurological: Mental Status: He is alert. Assessment and Plan ASSESSMENT/PLAN: 1. Sore throat - ICD9: 462, ICD10: J02.9 (primary diagnosis) - suspect viral - Group A strep molecular testing negative - Discussed supportive care treatment with fluids, rest and analgesia. - The patient may also use warm salt water gargles, throat lozenges and/or OTC throat spray as needed. 2. URI, acute - ICD9: 465.9, ICD10: J06.9 - Discussed viral etiology and rationale for treatment. - Symptomatic treatment with prn analgesia - Supportive care with fluids and rest - COVID & INFLUENZA A/B & RSV NAAT, ROUTINE -Out of window for Tamiflu and antiviral. -Rx for Tessalon Perles for cough Diagnosis and treatment plan were discussed and questions were answered to the patient's satisfaction. Pt acknowledged understanding of concepts and follow up plan. Specific signs and symptoms that would indicate the need for higher level of care were discussed in detail warranting prompt ER evaluation. CANDE Wright documented in this encounter [facility] Evaluation note Note Date & Type Note Facility Evaluation note No assessment information availa ble [facility] Work Phone: Evaluation note Note Date & Type Note Facility Evaluation note Diagnosis Sore throat- Primary Acute pharyngitis URI, acute Acute upper respiratory infections of unspecified site documented in this encounter [facility] Evaluation note Note Date & Type Note Facility Evaluation note Diagnosis Onset Date Erectile dysfunction acute Hyperlipidemia LDL goal <70 acute [facility] Work Phone: Reason for referral (narrative) Note Date & Type Note Facility Reason for referral (narrative) No reason for referral information available [facility] Work Phone: Summary Purpose Family History No Family History Records Found Relationship Condition Age at Onset Recorded Date/T lisette grandfather Malignant neoplasm of colon Unknown mother Malignant neoplasm Unknown Diabetes mellitus Unknown Advance Directives No Advanced Directives Records FoundDocuments on File Type Date Recorded Patient Die Sizer Expl anation Advance Directive(s) 01/09/2017 11:32 AM Advance Directive Response Recorded Date/ Time Living Will No March 29 0 4:02pm Power of Administration Clerk No March 29, 020 4:02pm Health Concerns Infection Onset Date Last Indicated Resolved Time Influenza 06/03/2023 06/03/2023 Chief Complaint and Reason for Visit Chief Complaint [employer]-PPW Reason for Visit Erectile dysfunction Hyperlipidemia LDL goal <70 Chief Complaint Admit Date L shoulder July 13, 2024 2:3 3pm E-ORDER July 14, 2024 3:1 9pm Reason for Visit Admit Date Rotator cuff syndrome July 13, 2024 2 :33pm Additional Source Comments (unrecognized sect ion and content) No Status Records FoundNo Status Records FoundNo Status Records FoundNo Status Records FoundNo Status Records FoundNo Status Records FoundNo Status Records FoundNo Status Records FoundNo Status Records Found INFORMATION SOURCE (unrecogn ized section and content) DATE CREATED AUTHOR 09/15/2017 [facility] DATE CREATED AUTHOR AUTHOR'S ORGANIZ ATION 09/15/2017 [facility] DATE CREATED AUTHOR AUTHOR'S ORGANIZ ATION 09/15/2017 [facility] DATE CREATED AUTHOR AUTHOR'S ORGANIZ ATION 09/15/2017 [facility] DATE CREATED AUTHOR AUTHOR'S ORGANIZ ATION 10/26/2018 [facility] DATE CREATED AUTHOR AUTHOR'S ORGANIZ ATION 10/27/2018 [facility] DATE CREATED AUTHOR AUTHOR'S ORGANIZ ATION 06/28/2022 [facility] DATE CREATED AUTHOR AUTHOR'S ORGANIZ ATION 06/04/2023 [facility] DATE CREATED AUTHOR AUTHOR'S ORGANIZ ATION 08/18/2024 [facility] Source Comments (unrecognize d section and content) In the event this informatio n is protected by the Federal Confidentiality of Alcohol and Drug Abuse Patient Records regulations: The Federal rules restrict any use of the information to criminally investigate or prosecute any alcohol or drug abuse patient.[facility] the event this information is protected by the Federal Confidentiality of Alcohol and Drug Abuse Patient Records regulations: The Federal rules restrict any use of the information to criminally investigate or prosecute any alcohol or drug abuse patient.[facility] the event this information is protected by the Federal Confidentiality of Alcohol and Drug Abuse Patient Records regulations: The Federal rules restrict any use of the information to criminally investigate or prosecute any alcohol or drug abuse patient.[facility] Goals (unrecognized section and content) Goals may be documented in a n alternate sectionGoals may be documented in an alternate sectionGoals may be documented in an alternate section Reason for Visit (unrecogniz ed section and content) Reason Comments Sore Throat Cough, FARRIS, congestio n x 4 days Reason Comments Results Care Teams (unrecognized sec tion and content) Team Status: Active Member Role Status Dates Dr. Bill Hays MD Family Provider Active Dr. Cameron Garcia DO Primary Care Provider Active Team Status: Inactive Member Role Status Dates Dr. Bill Booker MD Primary Care Provider, Referrin g Provider Active Dr. Cameron Garcia DO Attending Provider Active Team Status: Inactive Member Role Status Dates Dr. Cameron Garcia DO Primary Care Provider, Attend ing Provider Active Team Status: Inactive Member Role Status Dates Dr. Cameron Garcia DO Primary Care Provider Active Start: July 13, 2024 End: July 13, 2024 Dr. Cameron Garcia DO Attending Provider Active Start: July 13, 2024 End: July 13, 2024 Dr. Cameron Garcia DO Referring Provider Active Start: July 13, 2024 End: July 13, 2024 Team Status: Inactive Member Role Status Dates Dr. Cameron Garcia DO Primary Care Provider Active Start: July 14, 2024 End: July 14, 2024 Dr. Cameron Garcia DO Attending Provider Active Start: July 14, 2024 End: July 14, 2024 Dr. Cameron Garcia DO Referring Provider Active Start: July 14, 2024 End: July 14, 2024 FOR RECORDS PERTAINING TO PATIENTS WHO ARE OR HAVE BEEN ENROLLED IN A CHEMICAL DEPENDENCY/SUBSTANCEABUSE PROGRAM, SOME INFORMATION MAY BE OMITTED. This clinical summary was aggregated from multiple sources. Caution should be exercised in using it in the provision of clinical care. This summary normalizes information from multiple sources, and as a consequence, information in this document may materially change the coding, format and clinical context of patient data. In addition, data may be omitted in some cases. CLINICAL DECISIONS SHOULD BE BASED ON THE PRIMARY CLINICAL RECORDS. [employer] [facility]. provides no warranty or guarantee of the accuracy or completeness of information in this document.
== END | disposition home or self-care (01) ==
LOC: RAD 08:44
PROVIDERS: PCP Family Medicine; Referring Provider Nurse Practitioner; Visit Provider Nurse Practitioner
DX: N20.0 Calculus of kidney (principal)
CPT/HCPCS: 74018